=== PATIENT | male | born 1990 | race Two or more races ===

== ENCOUNTER 2022-03-12 12:32 | Outpatient (REF) | payer MEDICAID, SELFPAY ==
--- NOTE | ~2022-03-12 | XR_ITS ---
EXAMINATION: LEFT HIP, LUMBAR SPINE AND THORACIC SPINE CLINICAL INFORMATION: Left hip pain back pain COMPARISON: None TECHNIQUE: Left hip 2 views. Lumbar spine 5 views. Thoracic spine 3 views FINDINGS: Left hip: There is no visible acute fracture, dislocation or subluxation seen. No bony erosive changes. The soft tissues are normal Lumbar spine: There is normal lumbar lordosis. There is a rudimentary disc at the S1-S2 disc level with partially lumbarized S1 vertebra. The vertebral heights and alignment is normal. There is no pars defect or listhesis. No acute fracture, dislocation or subluxation seen. No lytic or sclerotic process seen the paravertebral soft tissues are normal. SI joints are normal. Dorsal spine: There is normal thoracic kyphosis. The vertebral heights, alignment and disc heights are normal. No visible acute fracture, dislocation or subluxation seen. No bony erosive changes XR/XR thoracic spine 3V IMPRESSION: Unremarkable left hip exam. Partially lumbarized S1 vertebra with rudimentary S1-S2 disc. No acute fracture or dislocation seen no pars defect or listhesis. Unremarkable dorsal spine exam
--- NOTE | ~2022-03-12 | XR_ITS ---
EXAMINATION: LEFT HIP, LUMBAR SPINE AND THORACIC SPINE CLINICAL INFORMATION: Left hip pain back pain COMPARISON: None TECHNIQUE: Left hip 2 views. Lumbar spine 5 views. Thoracic spine 3 views FINDINGS: Left hip: There is no visible acute fracture, dislocation or subluxation seen. No bony erosive changes. The soft tissues are normal Lumbar spine: There is normal lumbar lordosis. There is a rudimentary disc at the S1-S2 disc level with partially lumbarized S1 vertebra. The vertebral heights and alignment is normal. There is no pars defect or listhesis. No acute fracture, dislocation or subluxation seen. No lytic or sclerotic process seen the paravertebral soft tissues are normal. SI joints are normal. Dorsal spine: There is normal thoracic kyphosis. The vertebral heights, alignment and disc heights are normal. No visible acute fracture, dislocation or subluxation seen. No bony erosive changes XR/XR lumbar spine 4V min IMPRESSION: Unremarkable left hip exam. Partially lumbarized S1 vertebra with rudimentary S1-S2 disc. No acute fracture or dislocation seen no pars defect or listhesis. Unremarkable dorsal spine exam
--- NOTE | ~2022-03-12 | XR_ITS ---
EXAMINATION: LEFT HIP, LUMBAR SPINE AND THORACIC SPINE CLINICAL INFORMATION: Left hip pain back pain COMPARISON: None TECHNIQUE: Left hip 2 views. Lumbar spine 5 views. Thoracic spine 3 views FINDINGS: Left hip: There is no visible acute fracture, dislocation or subluxation seen. No bony erosive changes. The soft tissues are normal Lumbar spine: There is normal lumbar lordosis. There is a rudimentary disc at the S1-S2 disc level with partially lumbarized S1 vertebra. The vertebral heights and alignment is normal. There is no pars defect or listhesis. No acute fracture, dislocation or subluxation seen. No lytic or sclerotic process seen the paravertebral soft tissues are normal. SI joints are normal. Dorsal spine: There is normal thoracic kyphosis. The vertebral heights, alignment and disc heights are normal. No visible acute fracture, dislocation or subluxation seen. No bony erosive changes XR/XR hip LT min 2V IMPRESSION: Unremarkable left hip exam. Partially lumbarized S1 vertebra with rudimentary S1-S2 disc. No acute fracture or dislocation seen no pars defect or listhesis. Unremarkable dorsal spine exam
== END 2022-03-12 12:33 | disposition home or self-care (01) ==
LOC: HO.XRAY 12:32
PROVIDERS: PCP Internal Medicine; Visit Provider Internal Medicine
DX: M25.552 Pain in left hip (principal); M54.50 Low back pain, unspecified; M54.6 Pain in thoracic spine
CPT/HCPCS: 72072; 72110; 73502

== ENCOUNTER 2023-07-23 08:50 | Inpatient (IN) | payer MEDICAID, SELFPAY ==
--- NOTE | ~2023-07-23 | US_ITS ---
EXAMINATION: US ABDOMEN LIMITED CLINICAL INFORMATION: Right upper quadrant pain, nausea and vomiting. Question cholecystitis.. COMPARISON: CT abdomen pelvis 07/23/2023. TECHNIQUE: Real-time imaging of the right upper quadrant abdominal viscera. FINDINGS: GALLBLADDER: There is echogenic bile with wall thickness of 1.0 cm. There is fluid visualized in the gallbladder. No pericholecystic fluid collection seen. Findings are suspicious for acalculous cholecystitis. COMMON BILE DUCT: Normal in caliber measuring 0.4 cm in diameter. FREE FLUID: None. US/US abdomen limited IMPRESSION: Findings suspicious for acalculous cholecystitis.
--- NOTE | ~2023-07-23 | CT_ITS ---
EXAMINATION: CT ABDOMEN AND PELVIS WITH CONTRAST CLINICAL INFORMATION: Abdominal pain, nausea and vomiting COMPARISON: None available. TECHNIQUE: Multidetector volumetric images were obtained from the superior aspect of the liver through the pubic symphysis following administration 85 mL of Omnipaque 350 intravenous contrast. Sagittal and coronal reformatted images were obtained on the technologist's workstation. Oral contrast: Yes This CT examination was performed using dose optimization techniques as appropriate, variously including the following: *Automated exposure control *Adjustment of mA and/or kV according to patient size (this includes techniques or standardized protocols for targeted exams where dose is matched to indication/reason for exam; i.e. extremities or head) *Use of iterative reconstruction technique DLP: 1067 mGy-cm FINDINGS: LUNG BASES: The visualized lung bases are clear. There is a small esophageal hernia. LIVER, GALLBLADDER, AND BILIARY TREE: The liver is normal in size, shape, and attenuation. No focal hepatic lesion or biliary ductal dilatation is present. The gallbladder is normal in size. There is high attenuation densities in the gallbladder suggestive of small gallstones. The gallbladder wall appears slightly indistinct and may be thickened and edematous. Appearance is concerning for acute cholecystitis. There are prominent adjacent lymph nodes for example measuring 6 mm axial image 23 series 2. PANCREAS: Unremarkable. SPLEEN: Unremarkable. ADRENAL GLANDS: Unremarkable. KIDNEYS AND URETERS: The kidneys are normal in size, shape, and attenuation. No hydronephrosis, hydroureter, or calculi seen. No perinephric stranding. BLADDER: Unremarkable. GASTROINTESTINAL TRACT: The small and large bowel are unremarkable. The appendix is definitely seen. No inflammatory changes in the right lower quadrant. ABDOMINAL WALL: No significant hernia is appreciated. LYMPH NODES: Small small bowel mesentery lymph nodes. No ascites. VASCULAR: Unremarkable. PELVIC VISCERA: Unremarkable. OSSEOUS STRUCTURES: Unremarkable. CT/CT abdomen pelvis w IV con IMPRESSION: Abnormal appearing gallbladder with question gallstones and gallbladder wall thickening and edema. Appearance is concerning for acute cholecystitis. Follow-up ultrasound recommended. Small esophageal hernia. Fleischner guidelines were followed.
--- NOTE | 2023-07-23 09:26 | ED_ITS ---
HPI - URI/Sore Throat General Chief Complaint: Abdominal Pain Stated Complaint: sob, stoamch pain, fever Time Seen by Provider: 07/23/23 09:14 Source: patient Mode of arrival: ambulatory Limitations: no limitations History of Present Illness HPI Narrative: Patient is a 33-year-old male who presents emergency department for evaluation of multiple complaints. Reports onset of symptoms last night including diffuse upper abdominal pain reproducible to cough and deep breathing, nonproductive cough, feeling as though he cannot take a full breath, tactile fever. Reports an episode of dark colored emesis last night. He states that he has experienced symptoms like this in the past but typically after throwing up his pain goes away. He denies any known sick contacts. He reports last bowel movement to have been yesterday. Denies headache, neck pain, neck stiffness, chest pain, lower abdominal pain, dysuria, urinary frequency/ urgency / hesitancy, constipation, diarrhea, hematochezia, melena. Related Data Home Medications Medication Instructions Recorded Confirmed cholecalciferol (vitamin D3) 25 25 mcg PO QAM 07/23/23 07/23/23 mcg (1,000 unit) tablet lisinopril 10 1 tab PO DAILY 07/23/23 07/23/23 mg-hydrochlorothiazide 12.5 mg tablet omeprazole 20 mg capsule,delayed 20 mg PO QAM 07/23/23 07/23/23 release Allergies Allergy/AdvReac Type Severity Reaction Status Date / Time Penicillins [PENICILLINS] Allergy Unknown UNKNOWN Unverified 05/02/20 16:35 Review of Systems 2 Review of Systems: Yes all other systems are reviewed and are negative [facility] Past Medical History Attestation statement: The following information was validated with the patient. Source: old records reviewed Social History Social History Advance Directives: No Advance Directives Information Provided: No Physical Exam 2 Vital Signs: Vital Signs: Last Vital Signs Temp 98.1 F 07/23/23 09:36 Pulse 84 07/23/23 09:36 Resp 16 07/23/23 09:36 BP 148/95 H 07/23/23 09:36 Pulse Ox 96 07/23/23 09:36 O2 Del Method Room Air 07/23/23 09:36 BMI result Body Mass Index 50.1 Appearance: Alert.?Oriented to person, place and time. No acute distress.?Normal affect. Eyes: Pupils equal, round and reactive to light.? ENT: TM normal bilaterally. Pharynx normal.?? Neck: Normal inspection.? Neck supple.??No cervical adenopathy CVS: Heart sounds normal. Normal heart rate and rhythm.? Pulses normal.?? Respiratory: No respiratory distress.? Lung sounds clear to auscultation bilaterally?? Abdomen: Soft Diffuse upper abdominal tenderness upon palpation. No rigidity. No guarding. Negative Daugherty sign. No rebound tenderness. Normoactive bowel sounds. Skin: Skin warm and dry.? Normal skin color.? ? Extremities: No lower extremity edema.? Neuro: Moves all extremities spontaneously. Sensation intact bilaterally. No motor deficits. Ambulates with normal steady gait. Course Reevaluation(s) Reevaluation #1: CT abdomen and pelvis revealing acute cholecystitis question of gallstone, will obtain right upper quadrant ultrasound to assess for cholelithiasis and CBD. Covered with ceftriaxone and metronidazole given allergy to penicillin. Consulted with General surgery, Dr. Dietz, who Agrees to admit patient to surgical service. Patient and family updated on plan of care. Time: 14:05 Medications Administered Generic Name Dose Route Start Last Admin Trade Name Freq PRN Reason Stop Dose Admin Acetaminophen 975 mg 07/23/23 14:44 07/23/23 15:56 Acetaminophen 325 Mg Tablet PO 975 mg Q6H PRN Administration Pain, Mild (Pain Scale 1-3) Lactated Ringer's 1,000 mls @ 150 mls/hr 07/23/23 14:45 07/23/23 15:57 Lr IVCONT 150 mls/hr .Q6H40M CARLOS Administration Discontinued Medications Generic Name Dose Route Start Last Admin Trade Name Freq PRN Reason Stop Dose Admin Belladonna Alkaloids/Phenobarbital 10 ml 07/23/23 09:28 07/23/23 10:00 Phenobarb/Hyoscy/Atropine/Scop 10 Ml Elixir PO 07/23/23 09:29 10 ml ONCE ONE Administration Famotidine 20 mg 07/23/23 09:28 07/23/23 10:00 Famotidine 20 Mg Tablet PO 07/23/23 09:29 20 mg ONCE ONE Administration Sodium Chloride 1,000 mls @ 999 mls/hr 07/23/23 11:15 07/23/23 12:43 Ns IV 07/23/23 12:15 Infused .Q1H1M CARLOS Infusion Ceftriaxone Sodium 2 gm/ 50 mls @ 100 mls/hr 07/23/23 14:00 07/23/23 15:18 Sodium Chloride IV 07/23/23 14:29 Infused ONCE ONE Infusion Metronidazole 500 mg in 100 mls @ 100 mls/hr 07/23/23 14:00 07/23/23 14:52 Flagyl IV 07/23/23 14:59 100 mls/hr ONCE ONE Administration Iohexol 85 ml 07/23/23 12:03 07/23/23 12:04 Iohexol 350 Mg/Ml 100 Ml Infus..Btl IV 07/23/23 12:04 85 ml ONCE ONE Administration Ketorolac Tromethamine 30 mg 07/23/23 11:08 07/23/23 11:44 Ketorolac Tromethamine 30 Mg/Ml Vial IVPUSH 07/23/23 11:09 30 mg ONCE ONE Administration Ondansetron HCl 4 mg 07/23/23 11:07 07/23/23 11:42 Ondansetron Hcl 4 Mg/2 Ml Vial IVPUSH 07/23/23 11:08 4 mg ONCE ONE Administration Medical Decision Making Medical Decision Making MDM Narrative: Patient is a 33-year-old male with past medical history of hypertension, presenting for evaluation of cough, shortness of breath, and upper abdominal pain as per HPI. At this time history and physical exam not consistent with ACS/PE/pneumonia. Well-appearing, nontoxic, afebrile, no tachycardia or tachypnea/hypoxia. Speaking clear full sentences, ambulatory with steady gait. mild diffuse upper abdominal tenderness upon palpation, obtained CBC/CMP/lipase, which reveals leukocytosis with left shift no anemia, mildly elevated ALT with remainder of LFTs within normal limits, lipase within normal limits. Vomited approximately 50 mL dark green emesis, gastric occult testing negative. trialed GI cocktail for symptoms; and famotidine Without much improvement. viral testing is negative. Will obtain CT of the abdomen and pelvis for further evaluation, 1 L normal saline IV fluid, Toradol IV, Zofran IV. Differential Diagnosis Differential Diagnoses: The differential diagnosis associated with the presentation includes ( viral syndrome, gastritis, PUD, cholecystitis, cholelithiasis. Less likely obstruction, appendicitis, diverticulitis) Admission/Observation Consideration of admission/observation: Escalation of care including admission/observation considered ( see narrative above and course narrative for further detail) Consult Healthcare Provider Management of the patient was discussed with: Customer Care Associate ( General surgery Dr. Dietz, as per course narrative) Lab Data MDM Lab Attestation statement: I reviewed the patient's lab results. 07/23/23 10:11 07/23/23 10:11 Labs: Lab Results 07/23/23 07/23/23 07/23/23 Range/Units 09:21 10:11 10:56 WBC 15.5 H (4.8-10.8) X10*3/uL RBC 5.68 (4.60-5.80) X10*6/uL Hgb 16.1 (14.0-18.0) g/dl Hct 47.4 (42.0-52.0) % MCV 83.5 (80.0-98.0) fL MCH 28.3 (27.0-33.0) pg MCHC 34.0 (31.0-36.0) g/dl RDW 12.0 (11.0-16.0) % Plt Count 367 (160-400) X10*3/uL MPV 8.5 L (9.4-12.4) fL Immature Gran % (Auto) 0.5 H (0.0-0.4) % Neut % (Auto) 89.7 H (45-73) % Lymph % (Auto) 3.8 L (20-40) % [place] % (Auto) 5.4 (2-11) % Eos % (Auto) 0.3 (0-4) % Baso % (Auto) 0.3 (0-2) % Lymph # (Auto) 0.6 L (1.2-4.9) X10*3/uL [place] # (Auto) 0.8 (0.1-1.2) X10*3/uL Eos # (Auto) 0.1 (0.0-0.4) X10*3/uL Baso # (Auto) 0.1 (0.0-0.2) X10*3/uL Abs Immat Gran (auto) 0.07 H (0.00-0.03) X10*3/uL Absolute Neuts (auto) 13.9 H (2.0-8.3) x10*3/uL Absolute Nucleated RBC 0.000 (0.0-0.012) X10*3/uL Nucleated RBC % (auto) 0.0 (0.0-0.2) /100WBC Sodium 140 (135-145) mmol/L Potassium 3.6 (3.3-5.1) mmol/L Chloride 109 H (96-108) mmol/L Carbon Dioxide 20 L (22-29) mmol/L Anion Gap 15 (12-20) BUN 16 (9-16) mg/dL Creatinine 1.00 (0.5-1.4) mg/dL Estim Creat Clear Calc 143.2 Estimated GFR > 60 Random Glucose 128 H (60-115) mg/dL Calcium 9.9 (8.4-10.2) mg/dL Total Bilirubin 0.6 (0.0-1.0) mg/dL AST 29 (5-37) U/L ALT 71 H (0-40) U/L Alkaline Phosphatase 100 (39-117) U/L Total Protein 8.9 H (6.5-8.0) g/dL Albumin 4.7 (3.5-5.0) g/dL Lipase 19 (8-78) U/L Urine Color Urine Appearance Urine pH (5.0-9.0) Ur Specific [place] (1.005-1.025) Urine Protein (Neg-Trace) mg/dL Urine Glucose (UA) (Negative) mg/dL Urine Ketones (Negative) mg/dL Urine Blood (Negative) Urine Nitrite (Negative) Ur Leukocyte Esterase (Negative) Gastric Occult Blood NEGATIVE (NEG) Influenza Type A (PCR) NEGATIVE (Negative) Influenza Type B (PCR) NEGATIVE (Negative) RSV RNA Qual (PCR) NEGATIVE (Negative) SARS-CoV-2 RNA (RT-PCR) NEGATIVE (Negative) 07/23/23 Range/Units 14:07 WBC (4.8-10.8) X10*3/uL RBC (4.60-5.80) X10*6/uL Hgb (14.0-18.0) g/dl Hct (42.0-52.0) % MCV (80.0-98.0) fL MCH (27.0-33.0) pg MCHC (31.0-36.0) g/dl RDW (11.0-16.0) % Plt Count (160-400) X10*3/uL MPV (9.4-12.4) fL Immature Gran % (Auto) (0.0-0.4) % Neut % (Auto) (45-73) % Lymph % (Auto) (20-40) % [place] % (Auto) (2-11) % Eos % (Auto) (0-4) % Baso % (Auto) (0-2) % Lymph # (Auto) (1.2-4.9) X10*3/uL [place] # (Auto) (0.1-1.2) X10*3/uL Eos # (Auto) (0.0-0.4) X10*3/uL Baso # (Auto) (0.0-0.2) X10*3/uL Abs Immat Gran (auto) (0.00-0.03) X10*3/uL Absolute Neuts (auto) (2.0-8.3) x10*3/uL Absolute Nucleated RBC (0.0-0.012) X10*3/uL Nucleated RBC % (auto) (0.0-0.2) /100WBC Sodium (135-145) mmol/L Potassium (3.3-5.1) mmol/L Chloride (96-108) mmol/L Carbon Dioxide (22-29) mmol/L Anion Gap (12-20) BUN (9-16) mg/dL Creatinine (0.5-1.4) mg/dL Estim Creat Clear Calc Estimated GFR Random Glucose (60-115) mg/dL Calcium (8.4-10.2) mg/dL Total Bilirubin (0.0-1.0) mg/dL AST (5-37) U/L ALT (0-40) U/L Alkaline Phosphatase (39-117) U/L Total Protein (6.5-8.0) g/dL Albumin (3.5-5.0) g/dL Lipase (8-78) U/L Urine Color Yellow Urine Appearance Clear Urine pH 5.0 (5.0-9.0) Ur Specific [place] >= 1.030 H (1.005-1.025) Urine Protein Negative (Neg-Trace) mg/dL Urine Glucose (UA) Negative (Negative) mg/dL Urine Ketones 15 (Negative) mg/dL Urine Blood Negative (Negative) Urine Nitrite Negative (Negative) Ur Leukocyte Esterase Negative (Negative) Gastric Occult Blood (NEG) Influenza Type A (PCR) (Negative) Influenza Type B (PCR) (Negative) RSV RNA Qual (PCR) (Negative) SARS-CoV-2 RNA (RT-PCR) (Negative) Independent Interpretation I performed an independent interpretation of an: Ultrasound and CT Scan Radiology Impression Discussion of test interpretation with radiology: I have reviewed the radiologist's reading. Radiologist Impression: CT/CT abdomen pelvis w IV con IMPRESSION: Abnormal appearing gallbladder with question gallstones and gallbladder wall thickening and edema. Appearance is concerning for acute cholecystitis. Follow-up ultrasound recommended. Small esophageal hernia. US/US abdomen limited IMPRESSION: Findings suspicious for acalculous cholecystitis. Discharge Plan Discharge Clinical Impression: Acute cholecystitis Patient Disposition: Admitted As Inpatient
[2023-07-23 09:36] VITALS: BP 148/95; PULSE 84; RESP 16; TEMP 36.7; O2SAT 96; BMI 50.1
[2023-07-23] MEDS: Famotidine 20 MG TABLET PO (10:00)
[2023-07-23] MEDS: PHENobarb/Hyoscy/Atropine/Scop 10 ML ELIXIR PO (10:00)
[2023-07-23 10:03] LABS: Influenza A PCR NEGATIVE (Negative); Influenza B PCR NEGATIVE (Negative); Resp Syncy Virus RNA Qual PCR NEGATIVE (Negative); SARS COV2 PCR INHOUSE NEGATIVE (Negative)
[2023-07-23 10:18] LABS: MANUAL DIFF FLAG NO
[2023-07-23 10:19] LABS: Basophils Absolute Auto 0.1 X10*3/uL (0.0-0.2); Basophils Percent Auto 0.3 % (0-2); Eosinophils Absolute Auto 0.1 X10*3/uL (0.0-0.4); Eosinophils Percent Auto 0.3 % (0-4); Hematocrit 47.4 % (42.0-52.0); Hemoglobin 16.1 g/dl (14.0-18.0); Imm Gran Abs Auto 0.07 X10*3/uL (0.00-0.03); Imm Gran Pct Auto 0.5 % (0.0-0.4); Lymphocytes Absolute Auto 0.6 X10*3/uL (1.2-4.9); Lymphocytes Percent Auto 3.8 % (20-40); Mean Corpuscular Hemoglobin 28.3 pg (27.0-33.0); Mean Corpuscular Volume 83.5 fL (80.0-98.0); Mean Platelet Volume 8.5 fL (9.4-12.4); Monocytes Absolute Auto 0.8 X10*3/uL (0.1-1.2); Monocytes Percent Auto 5.4 % (2-11); Neutrophils Absolute Auto 13.9 x10*3/uL (2.0-8.3); Neutrophils Percent Auto 89.7 % (45-73); Platelet Count 367 X10*3/uL (160-400); Red Blood Count 5.68 X10*6/uL (4.60-5.80); White Blood Count 15.5 X10*3/uL (4.8-10.8)
[2023-07-23 10:41] LABS: Alanine Aminotransferase 71 U/L (0-40); Albumin Level 4.7 g/dL (3.5-5.0); Alkaline Phosphatase 100 U/L (39-117); Anion Gap 15 (12-20); Aspartate Amino Transferase 29 U/L (5-37); Bilirubin Total 0.6 mg/dL (0.0-1.0); Blood Urea Nitrogen 16 mg/dL (9-16); Calcium 9.9 mg/dL (8.4-10.2); Carbon Dioxide 20 mmol/L (22-29); Chloride 109 mmol/L (96-108); Creatinine Clr Calc Pharmacy 143.2; Estimated Glomerular Filt Rate > 60; Glucose Random 128 mg/dL (60-115); Lipase 19 U/L (8-78); Potassium 3.6 mmol/L (3.3-5.1); Sodium 140 mmol/L (135-145); Total Protein 8.9 g/dL (6.5-8.0)
[2023-07-23 11:05] LABS: GASOB Int Neg Ctl Valid YES; GASOB Int Pos Ctl Valid YES; Occult Blood Gastric NEGATIVE (NEG)
[2023-07-23] MEDS: ondansetron HCL 4 MG/2 ML VIAL IVPUSH ×2 (11:42→21:08)
[2023-07-23] MEDS: Ketorolac Tromethamine 30 MG/ML VIAL IVPUSH (11:44)
[2023-07-23] MEDS: 0.9 % Sodium Chloride 1,000 ML 999 ML IV (11:47)
[2023-07-23] MEDS: iohexoL 350 MG/ML 100 ML INFUS..BTL 85 ML IV (12:04)
--- NOTE | 2023-07-23 14:09 | PM.HPGS ---
History of Present Illness History of Present Illness Date of Service: 07/23/23 Chief complaint: Acute calculus cholecystitis Narrative: Kristofer Lugo is a 33 year old male with a history of morbid obesity with a BMI of 50.1/weight of 310 lb, history of hypertension, vitamin-D deficiency and an unknown other health problem treated with an unknown medication according to the patient who has had 2 episodes of abdominal pain associated with vomiting. Patient notes that this episode started yesterday that was accompanied by both nausea and vomiting. He is continuing to have pain and notes that previously, after several hours of pain and vomiting, the pain would resolve. Patient denies any intra-abdominal operations and is a poor historian regarding his past medical history. He reports an allergy to penicillin Last meal was yesterday, 07/22 in the afternoon. Review of Systems Review of Systems: Yes all other systems are reviewed and are negative Constitutional: Constitutional: Reports as per [facility] Social History Social History (Reviewed 07/23/23 @ 14:26 by Jose J Dietz MD, [facility], [facility]) Advance Directives: No Advance Directives Information Provided: No Meds Allergies Allergy/AdvReac Type Severity Reaction Status Date / Time Penicillins [PENICILLINS] Allergy Unknown UNKNOWN Unverified 05/02/20 16:35 Active Medications: Current Medications Ceftriaxone Sodium 2 gm/ (Sodium Chloride) 50 mls @ 100 mls/hr IV ONCE ONE Stop: 07/23/23 14:29 Metronidazole (Flagyl) 500 mg in 100 mls @ 100 mls/hr IV ONCE ONE Stop: 07/23/23 14:59 Home Medications Medication Instructions Recorded Confirmed Last Taken Type cholecalciferol (vitamin D3) 25 25 mcg PO QAM 07/23/23 07/23/23 07/22/23 History mcg (1,000 unit) tablet lisinopril 10 1 tab PO DAILY 07/23/23 07/23/23 07/22/23 History mg-hydrochlorothiazide 12.5 mg tablet omeprazole 20 mg capsule,delayed 20 mg PO QAM 07/23/23 07/23/23 07/22/23 History release Physical Exam Vital Signs: Vital Signs: Last Vital Signs Temp 98.1 F 07/23/23 09:36 Pulse 84 07/23/23 09:36 Resp 16 07/23/23 09:36 BP 148/95 H 07/23/23 09:36 Pulse Ox 96 07/23/23 09:36 O2 Del Method Room Air 07/23/23 09:36 BMI result Body Mass Index 50.1 On exam, he is nontoxic and seems to be in good spirits His sclera anicteric Oropharynx clear, Mallampati class 4, dentition poor Heart is regular, normal S1-S2, lungs are equal but diminished bilaterally Abdomen is morbidly obese with epigastric and right upper quadrant pain to palpation. No rebound, rigidity, guarding is noted and no peritoneal sign is present Results Results Labs: Short CBC 07/23/23 Range/Units 10:11 WBC 15.5 H (4.8-10.8) X10*3/uL Hgb 16.1 (14.0-18.0) g/dl Hct 47.4 (42.0-52.0) % Plt Count 367 (160-400) X10*3/uL BMP 07/23/23 10:11 Sodium 140 Potassium 3.6 Chloride 109 H Carbon Dioxide 20 L BUN 16 Creatinine 1.00 Calcium 9.9 Liver Function 07/23/23 Range/Units 10:11 Total Bilirubin 0.6 (0.0-1.0) mg/dL AST 29 (5-37) U/L ALT 71 H (0-40) U/L Alkaline Phosphatase 100 (39-117) U/L Albumin 4.7 (3.5-5.0) g/dL Abdomen CT scan report/results: report reviewed and image reviewed CT scan - pelvis: report reviewed and image reviewed Abdominal ultrasound report/results: pending Assessment and Plan (1) Acute cholecystitis: Status: Acute (2) HTN (hypertension): Status: Acute (3) BMI 50.0-59.9, adult: Status: Acute (4) Vitamin D deficiency: Status: Acute Plan Bedside ultrasound is being performed to assess the common bile duct. I briefly explained to the patient that he appears to have either biliary colic or early calculous cholecystitis and the additional information regarding his anatomy will be required to help direct his care. I briefly reviewed the probable need for cholecystectomy this admission. The patient expressed interest in being discharged with outpatient follow-up, but the inherent risks of significant impact to his health including worsening symptoms and possible need for open surgery was discussed and apparently understood and he is in agreement to stay, as of my discussion. Patient had some questions regarding the procedure but understands we will discuss in greater detail after we obtain the U/S and monitor his symptoms. Admit, NPO, IVF Analgesics & antiemetics Trend labs Please note that the patient is bilingual but cannot read. The patient's uncle is Swedish-speaking only and the patient requested interpretive services to facilitate his uncle's input into the recurring right upper quadrant pain. Via interpretive services, I explained the symptoms of biliary colic vs early acute calculus cholecystitis and recommended laparoscopic cholecystectomy, possibly open, possible cholangiogram. I reviewed the option of continued observation and 2nd opinion which was declined. I also reviewed the inherent risks to surgery which include, but are not limited to: Bleeding that could require another operation or blood transfusion, the need for open surgery, the unlikely but possible issue of bile leak that could require an ERCP, the risk of retained common duct stones that could require an ERCP, the risk of common bile duct injury which would require transfer to a larger institution for another operation. Risks of incisional hernia, activity restrictions, risk of DVT that could be fatal were all discussed and apparently understood. Patient seemed to understand his options, declined a 2nd opinion and wants to proceed as recommended. We also discussed the patient's obesity and its relationship to fatty liver disease enlarged liver & HTN. The patient gets his healthcare at [facility] and requested I forward a copy of these records to his PCP for completeness. We also reviewed the increased risk of cirrhosis. Instructions regarding diet and activity reviewed and apparently understood. The patient is advised to avoid rich fatty foods postoperatively to avoid GI distress/diarrhea and advised to not lift more than 20 lb for medical reasons to minimize the risk of hernia postoperatively. I recommended that she discuss these restrictions with her employer and that she is not disabled during this time frame but can perform light duty. The patient's questions seemed to be satisfactorily answered. Quality Stroke Does the patient have a stroke diagnosis?: No VTE Prior VTE?: No VTE Risk Level:: Surgical - moderate VTE Device Contraindication: N/A - Device Ordered VTE Drug Contraindication: Treatment Not Indicated Procedures Date of Service Date of Service: 07/23/23
[2023-07-23 14:15] LABS: Appearance Urine Clear; Color Urine Yellow; Glucose Urine UA Negative (Negative); Leukocyte Esterase Urine Negative (Negative); Nitrite Urine Negative (Negative); Specific Gravity - Urine >= 1.030 (1.005-1.025); Urine Blood Negative (Negative); Urine Ketones 15 mg/dL (Negative); Urine Protein Negative (Neg-Trace)
[2023-07-23] MEDS: cefTRIAXone sodium 2 GM in 0.9 % Sodium Chloride 50 ML IV (14:19)
[2023-07-23] MEDS: metroNIDAZOLE/NS 500 MG/100 ML PIGGYBACK 100 MG IV (14:52)
--- NOTE | 2023-07-23 14:52 | PHA.MEDREC ---
Pharmacy Consult ? Medication Reconciliation Pharmacy has completed the medication reconciliation. Patient report medications by what they are for. Per pharmacy claim history patient has not filled medications since 02/09/23. Stiven DewittD
--- NOTE | 2023-07-23 15:15 | PC.NURSE ---
20g IV placed in left bicep- pt rec 2gm ceftriaxone, currently rec flagyl 500mg IV per order- Dr Dietz at bedside with prick stitcher, discussing plans for admission
--- NOTE | 2023-07-23 15:28 | W.PM.OPN ---
Operative Note Operative Note Date of Service: 07/24/23 Narrative: Preop diagnosis: [Early acute calculus cholecystitis] Postop diagnosis: [Same, enlarged fatty liver, right upper quadrant adhesions requiring adhesiolysis] Procedure: [] Surgeon: Jose J Dietz MD, FACS, [facility] Assist: [Hardik Carranza PA-C] Anesthesia: [GET] Estimated blood loss: [300cc] Specimen: [1) gallbladder fluid for Gram stain and culture; 2) gallbladder and contents] Drain: DANY in Morison's pouch Intraoperative findings: [Necrotic/gangrenous cholecystitis with stones, enlarged fatty liver, edema to the karen and cystic triangle; cystic duct 4-5 mm; cystic artery 2-3 mm and apparently thrombosed. Critical view demonstrated.] Indications: [The patient is a 33-year-old morbidly obese male with a history of hypertension who has had recurring episodes of right upper quadrant pain and was recently diagnosed with gallstones. CT showed inflammation around the gallbladder and stones; abdominal ultrasound showed a 4 mm CBD, thickened gallbladder wall and no evidence of stones raising a concern for acalculous cholecystitis; LFTs showed a normal total bilirubin and alkaline phosphatase but elevated ALT. The patient requested his [place]-speaking uncle be included in the discussion and the options including continued observation, attempted discharge for outpatient follow-up or 2nd opinion were reviewed. Given his exam and findings, I recommended proceeding with a laparoscopic cholecystectomy, possibly open and possible cholangiogram in reviewed the inherent risks in [place]i with [place] interpretation for his uncle, as requested. The patient noted he cannot read either [place]i or [place], so I reviewed the risks and read consent risks to him, which include, but are not limited to: Bleeding that could require another operation or blood transfusion, the need for open surgery, the unlikely but possible issue of bile leak that could require an ERCP, the risk of retained common duct stones that could require an ERCP, risks of ongoing pain related to NAFLD, risk of fatal DVT/PE, risk of incisional hernia, the risk of common bile duct injury which would require transfer to a larger institution for another operation. Patient seemed to understand his options, declined a 2nd opinion and wants to proceed with cholecystectomy as recommended.] Procedure: [The patient was identified in preoperative holding and again in the operating room and placed supine on the table. An appropriate time-out was performed and preemptive local used at all trocar insertion sites. I began at the patient's supraumbilical midline and placed a Veress needle through a transverse supraumbilical incision. An appropriate drop test was performed but opening pressure were high, so the needle was left in place and a stab incision made in the left upper quadrant, the Veress needle placed, an appropriate drop test performed and a pneumoperitoneum of 15 mmHg obtained using carbon dioxide. Opening pressures in left upper quadrant were 9 mmHg. Next, I entered the abdomen using a 5 mm 30 degree laparoscopic through the right anterior axillary line 5 mm Optiview port using preemptive analgesia at the level of the umbilicus. Upon entering the abdomen, both Veress needles were noted to be intra-abdominal and no injury was noted. Both needles were withdrawn. Next a a 5 mm epigastric and two 5 mm right subcostal ports were placed with preemptive analgesia under direct laparoscopic vision without incident and the supraumbilical trocar upsized to a 12 mm trocar under direct laparoscopic vision. The patient had obvious gangrenous changes to his gallbladder. The gallbladder was tense requiring assist aspirate her to remove bile and stones which was sent for Gram stain and culture. In spite of careful retraction, the whole from the aspiration continue to enlarge and some stone and sludge from the gallbladder were were released, quickly contained. In addition, adhesions from the omentum were noted and so dense that a LigaSure or was required to lyse these adhesions under direct laparoscopic vision order to facilitate retraction of the gallbladder. An additional 5 mm port was required in the right upper quadrant due to the patient's centripetal obesity to facilitate safe dissection. The cystic triangle and karen were all rather edematous and dissection was carried from the neck of the gallbladder down towards the cystic duct which was circumferentially dissected the cystic artery was noted in its usual location medially and small is appeared thrombosed. After dissection was carried posteriorly and the critical view of safety demonstrated, these structures were clipped twice proximally, once distally and then sharply divided. The patient's body habitus, liver, edema and technical equipment difficulty is made removing the gallbladder from the fossa on the liver challenging due to the edema and smoke production. There was diffuse ooze from the liver bed that was rendered hemostatic with Surgicel and direct pressure. Once the gallbladder was removed, it was placed in an Endo-Catch bag and delivered through the umbilicus under direct laparoscopic vision. Prior to removing the gallbladder from the fossa, the clips were visualized on the cystic duct and artery stumps and additional Surgicel placed to control bleeding from the fossa. The abdomen was again inspected with the laparoscoped and a abdomen deflated to assess for hemostasis. Position changes were used to remove the irrigant and clot demonstrated from the operation and final evaluation of the liver bed showed inherent clot. A DANY was placed in Morison's pouch and secured to the skin via the lateral/inferior 5 mm port of the abdomen using 2 0 silk. The patient was returned to neutral position, the abdomen deflated and the fascia of the supraumbilical incision closed with interrupted Vicryl sutures. Skin was closed with 4-0 Monocryl subcuticular sutures. Mastisol and Steri-Strips were applied followed by Band-Aids. The patient tolerated the procedure well and was extubated recovered in stable condition. All sponge instrument counts were correct.
--- NOTE | 2023-07-23 15:53 | PM.DS ---
DS: Providers Provider Date of Service: 07/27/23 Date of admission: 07/23/23 14:45 Primary care physician: Graciela Recio MD Consults: 07/23/23 14:09 Consult to General Surgery Stat Consulting Provider: [facility] [place] [facility] Surgeons Reason for consultation: cholecystitis DS: Diagnosis Discharge Diagnosis (1) Acute cholecystitis: Status: Acute (2) HTN (hypertension): Status: Acute (3) BMI 50.0-59.9, adult: Status: Acute (4) Vitamin D deficiency: Status: Acute DS: Summary Hospital Course Hospital Course: See admitting H and P for full details. Briefly, this 33-year-old male with obesity, fatty liver disease, hypertension, vitamin-D deficiency presented with recurring episodes of abdominal pain associated with vomiting. He was noted to have a leukocytosis, guille cholecystic inflammation and stones on CT and ultrasound demonstrated a thickened gallbladder wall but a 4 mm common bile duct. He was admitted to the hospital for bowel rest, IV hydration and antibiotics. His exam and labs were monitored. The patient was taken for laparoscopic cholecystectomy and noted to have right upper quadrant adhesions requiring lysis of adhesions prior to remove his frankly gangrenous gallbladder. Due to his anatomy, engorged liver due to fatty liver disease and hepatomegaly, patient was kept in the hospital on antibiotics and Gram stain demonstrated both Gram-positive rods and Gram-negative rods, but intraoperative cultures were negative. He was monitored, his labs normalized, his drain removed since there was only serosanguineous drainage and he was discharged in improved condition. Time Attestation Discharge coordination time: Greater than 30 minutes Quality: Safe Use of Opioids Does Pt have an Active Cancer Diagnosis on the Problem List?: No Quality: Stroke Does the patient have a stroke diagnosis?: No Physical Exam Vital Signs: Vital Signs: Last Vital Signs Temp 98.1 F 07/23/23 09:36 Pulse 84 07/23/23 09:36 Resp 16 07/23/23 09:36 BP 148/95 H 07/23/23 09:36 Pulse Ox 96 07/23/23 09:36 O2 Del Method Room Air 07/23/23 09:36 BMI result Body Mass Index 50.1 DS: Data Data Completed and Pending Labs on day of discharge: Laboratory Results - last 24 hr 07/23/23 07/23/23 07/23/23 09:21 10:11 10:56 WBC 15.5 H RBC 5.68 Hgb 16.1 Hct 47.4 MCV 83.5 MCH 28.3 MCHC 34.0 RDW 12.0 Plt Count 367 MPV 8.5 L Immature Gran % (Auto) 0.5 H Neut % (Auto) 89.7 H Lymph % (Auto) 3.8 L [place] % (Auto) 5.4 Eos % (Auto) 0.3 Baso % (Auto) 0.3 Lymph # (Auto) 0.6 L [place] # (Auto) 0.8 Eos # (Auto) 0.1 Baso # (Auto) 0.1 Abs Immat Gran (auto) 0.07 H Absolute Neuts (auto) 13.9 H Absolute Nucleated RBC 0.000 Nucleated RBC % (auto) 0.0 Sodium 140 Potassium 3.6 Chloride 109 H Carbon Dioxide 20 L Anion Gap 15 BUN 16 Creatinine 1.00 Estim Creat Clear Calc 143.2 Estimated GFR > 60 Random Glucose 128 H Calcium 9.9 Total Bilirubin 0.6 AST 29 ALT 71 H Alkaline Phosphatase 100 Total Protein 8.9 H Albumin 4.7 Lipase 19 Urine Color Urine Appearance Urine pH Ur Specific [place] Urine Protein Urine Glucose (UA) Urine Ketones Urine Blood Urine Nitrite Ur Leukocyte Esterase Gastric Occult Blood NEGATIVE Influenza Type A (PCR) NEGATIVE Influenza Type B (PCR) NEGATIVE RSV RNA Qual (PCR) NEGATIVE SARS-CoV-2 RNA (RT-PCR) NEGATIVE 07/23/23 14:07 WBC RBC Hgb Hct MCV MCH MCHC RDW Plt Count MPV Immature Gran % (Auto) Neut % (Auto) Lymph % (Auto) [place] % (Auto) Eos % (Auto) Baso % (Auto) Lymph # (Auto) [place] # (Auto) Eos # (Auto) Baso # (Auto) Abs Immat Gran (auto) Absolute Neuts (auto) Absolute Nucleated RBC Nucleated RBC % (auto) Sodium Potassium Chloride Carbon Dioxide Anion Gap BUN Creatinine Estim Creat Clear Calc Estimated GFR Random Glucose Calcium Total Bilirubin AST ALT Alkaline Phosphatase Total Protein Albumin Lipase Urine Color Yellow Urine Appearance Clear Urine pH 5.0 Ur Specific [place] >= 1.030 H Urine Protein Negative Urine Glucose (UA) Negative Urine Ketones 15 Urine Blood Negative Urine Nitrite Negative Ur Leukocyte Esterase Negative Gastric Occult Blood Influenza Type A (PCR) Influenza Type B (PCR) RSV RNA Qual (PCR) SARS-CoV-2 RNA (RT-PCR) Discharge Plan Discharge Anticipated Discharge Date/Time: 07/27/23 16:00 Patient Disposition: Home, Self-Care Discharge Diagnosis: s/p lap marla for gangrenous cholecystitis Referrals: Graciela Recio MD [Primary Care Provider] - 1 Week Jose J Dietz MD, [facility], [facility] [Physician] - 1 Week Discharge Medications: New amoxicillin-pot clavulanate 875-125 mg Tablet 875 mg PO Q12H 7 Days Qty: 13 0RF oxycodone 5 mg tablet 5 mg PO Q4H PRN (Reason: pain) Qty: 30 0RF Rx Instructions: Partial Fill upon patient request. docusate sodium 100 mg capsule 100 mg PO BID Qty: 90 0RF Continued omeprazole 20 mg capsule,delayed release(DR/EC) 20 mg PO QAM lisinopril-hydrochlorothiazide 10-12.5 mg tablet 1 tab PO DAILY cholecalciferol (vitamin D3) 25 mcg (1,000 unit) tablet 25 mcg PO QAM Discharge Orders: Discharge Order (Routine); Ordered 07/27/23 Ordered By: Jose J Dietz Diet: low fat diet Activity on Discharge: No heavy lifting Stand Alone Forms: Patient Portal Discharge page Activity Restrictions/Additional Instructions: You had a laparoscopic cholecystectomy performed by Dr. Dietz. It is normal to experience some neck or shoulder pain from the gas used to inflate your abdomen. It is also normal to have pain or discomfort in your abdomen/belly as well as at the trocar sites (small incisions). This discomfort will resolve over the next 1-3 days, however, if it gets progressively worse, if you should develop worsening pain, nausea, vomiting and cannot keep liquids down, chest pain, difficulty breathing or shortness of breath, fevers over 100F please report to the nearest emergency department. Be sure to call the office at [phone] for a follow-up visit with 1 of the surgeons next week. Call the office with any questions or problems. Unless otherwise directed by Dr. Dietz, you should resume taking your regular medications. Be sure to take the antibiotic twice a day until they are gone. You do not need to use narcotics unless you are having pain. Be sure to drink 6 oz of orange juice every day. As Dr. Dietz reviewed in the office, you must not lift more than 20 lb for the next 4 weeks. Strenuous activities can tear out your sutures and cause an incisional hernia that would require another operation. Activities to be avoided include: sports, running, bicycling, yoga, lifting more than 20 lb, digging, gardening, splitting/carrying wood, swimming, hiking uphill, and other activities. If you have questions regarding this specific activity, please check with Dr. Dietz. If your incisions become red, swollen, tender or draining pus, please contact Dr. Dietz or go to the nearest emergency department. OK to shower, do not soak in a tub. If there are bandages on your incisions, remove them at home. Do not soak in a tub or swimming pool until your incisions have completely sealed, usually 2 or more weeks. After the dressings are removed in 48 hours, you will notice paper tapes called butterflies/Steri-Strips. These tapes will fall off on their own in 1-2 weeks. You do not need to apply another bandage unless your clothing irritates your incisions. If you need to place another Band-Aid on your incisions, be sure to wait until the Steri strip is dry. You have been prescribed narcotic pain medicine that will cause constipation. Please purchase [id number] stool softener known as Colace/docusate, 100 mg. Take 2 tablets with breakfast and the morning and 2 tablets in the evening after dinner until your bowels are moving and urine or longer taking narcotics. Please note that if you are not taking narcotics, the general anesthesia for the procedure can still cause constipation. If you experience diarrhea, stop taking the stool softener medicine. You can take [id number] Tylenol/acetaminophen 2 tablets every 6 hours. You should also use ice packs to the operative site to help minimize pain and swelling for the first 3 days, or as needed afterwards. Avoid aspirin, Aleve, ibuprofen, Motrin, Naprosyn, naproxen for the next week. Remember that the gallbladder helps to to digest fatty foods. If you eat fried foods; rich, creamy sauces; cheese; gravies or other such heavy, greasy foods, you will likely develop gas and bloating and diarrhea. To minimize this risk, eat a high protein, high-fiber, low-fat diet for the next few weeks. Care Plan Goals: Allow adequate healing Health Concerns: Status post cholecystectomy, allow adequate healing Plan of Treatment: Continue antibiotics as prescribed, allow adequate healing Assessment: Gangrenous cholecystitis, s/p lap marla
[2023-07-23] MEDS: Acetaminophen 325 MG TABLET 975 MG PO (15:56)
[2023-07-23] MEDS: Lactated Ringers 1,000 ML 150 ML IVCONT ×2 (15:57→22:19)
[2023-07-23 16:10] VITALS: TEMP 36.9
[2023-07-23 16:52] LABS: Estimated Average Glucose 97 mg/dL
[2023-07-23 16:58] VITALS: BP 112/60; PULSE 86; RESP 15; TEMP 37.6; O2SAT 99
[2023-07-23 17:31] VITALS: BMI 52.0
[2023-07-23 17:43] VITALS: BP 134/93; PULSE 93; RESP 18; TEMP 37.3; O2SAT 98
[2023-07-23 19:56] VITALS: BP 138/91; PULSE 103; RESP 18; TEMP 37.2; O2SAT 98
[2023-07-23] MEDS: HYDROmorphone HCl 0.5 MG/0.5 ML SYRINGE 0.25 MG IVPUSH ×2 (21:08→23:45)
[2023-07-24] VITALS (14 sets, daily range): BP systolic 105–123; BP diastolic 57–77; PULSE 75–109; RESP 16–22; TEMP 36.1–37.1; O2SAT 92–98
[2023-07-24] MEDS: HYDROmorphone HCl 0.5 MG/0.5 ML SYRINGE 0.25 MG IVPUSH ×4 (01:47→23:05)
[2023-07-24] MEDS: Lactated Ringers 1,000 ML 150 ML IVCONT ×3 (04:28→17:58)
[2023-07-24] MEDS: ondansetron HCL 4 MG/2 ML VIAL IVPUSH ×3 (04:38→19:42)
[2023-07-24] MEDS: Pantoprazole Sodium 40 MG/10 ML VIAL IVPUSH (05:44)
[2023-07-24 06:04] LABS: Basophils Absolute Auto 0.1 X10*3/uL (0.0-0.2); Basophils Percent Auto 0.3 % (0-2); Eosinophils Percent Auto 0.2 % (0-4); Hematocrit 39.8 % (42.0-52.0); Hemoglobin 13.4 g/dl (14.0-18.0); Imm Gran Abs Auto 0.13 X10*3/uL (0.00-0.03); Imm Gran Pct Auto 0.7 % (0.0-0.4); Lymphocytes Absolute Auto 1.3 X10*3/uL (1.2-4.9); Lymphocytes Percent Auto 6.9 % (20-40); MANUAL DIFF FLAG SCAN; Mean Corpuscular HGB Conc 33.7 g/dl (31.0-36.0); Mean Corpuscular Hemoglobin 28.7 pg (27.0-33.0); Mean Corpuscular Volume 85.2 fL (80.0-98.0); Mean Platelet Volume 9.8 fL (9.4-12.4); Monocytes Absolute Auto 2.3 X10*3/uL (0.1-1.2); Monocytes Percent Auto 12.1 % (2-11); Neutrophils Absolute Auto 15.4 x10*3/uL (2.0-8.3); Neutrophils Percent Auto 79.8 % (45-73); Platelet Count 234 X10*3/uL (160-400); Red Blood Count 4.67 X10*6/uL (4.60-5.80); Red Cell Distribution Width 12.3 % (11.0-16.0); SCAN SMEAR FLAG 1; White Blood Count 19.3 X10*3/uL (4.8-10.8)
[2023-07-24 06:21] LABS: Alanine Aminotransferase 98 U/L (0-40); Albumin Level 3.1 g/dL (3.5-5.0); Alkaline Phosphatase 89 U/L (39-117); Anion Gap 12 (12-20); Aspartate Amino Transferase 81 U/L (5-37); Bilirubin Total 3.3 mg/dL (0.0-1.0); Blood Urea Nitrogen 11 mg/dL (9-16); Calcium 8.4 mg/dL (8.4-10.2); Carbon Dioxide 22 mmol/L (22-29); Chloride 107 mmol/L (96-108); Creatinine Clr Calc Pharmacy 174.3; Estimated Glomerular Filt Rate > 60; Glucose Random 89 mg/dL (60-115); Potassium 3.5 mmol/L (3.3-5.1); Sodium 137 mmol/L (135-145); Total Protein 6.3 g/dL (6.5-8.0)
--- NOTE | 2023-07-24 06:27 | P.PNGS_ITS ---
Subjective Subjective Date of Service: 07/24/23 Patient reports: no new complaints and still having pain Interval history: Patient was seen preoperatively at approximately 06:40. He notes that he is about the same having the same level of pain no chest pain, difficulty breathing or shortness of breath. He denies any new complaints but asked if it was likely that he would go home today. I reviewed his elevated LFTs today and recommended that we plan to keep him overnight irrespective of surgical outcome today so that we can monitor his labs. He stated that he would call his Maltese-speaking on-call to update him. Physical Exam 2 Vital Signs: Vital Signs: Last Vital Signs Temp 96.9 F 07/24/23 04:00 Pulse 109 H 07/24/23 04:00 Resp 16 07/24/23 04:00 BP 107/59 L 07/24/23 04:00 Pulse Ox 93 07/24/23 04:00 O2 Del Method Room Air 07/24/23 04:00 BMI result Body Mass Index 52.0 On exam, he is anicteric and nontoxic He is having no respiratory difficulty Abdomen remains obese and is tender at the same level as yesterday. No diffuse peritoneal sign is noted. Objective Data Active Medications Acetaminophen (Acetaminophen 325 Mg Tablet) 975 mg PO Q6H PRN PRN Reason: Pain, Mild (Pain Scale 1-3) Last Admin: 07/23/23 15:56 Dose: 975 mg Documented By: BROCK Hydromorphone HCl (Hydromorphone Hcl 0.5 Mg/0.5 Ml Syringe) 0.25 mg IVPUSH Q2H PRN; Protocol PRN Reason: Pain, Moderate(Pain Scale 4-6) Last Admin: 07/24/23 04:33 Dose: 0.25 mg Documented By: CARLYLE Lactated Ringer's (Lr) 1,000 mls @ 150 mls/hr IVCONT .Q6H40M CARLOS Last Admin: 07/24/23 04:28 Dose: 150 mls/hr Documented By: CARLYLE Ondansetron HCl (Ondansetron Hcl 4 Mg/2 Ml Vial) 4 mg IVPUSH Q6H PRN PRN Reason: Nausea and Vomiting Last Admin: 07/24/23 04:38 Dose: 4 mg Documented By: HO.ODRISM Pantoprazole Sodium (Pantoprazole Sodium 40 Mg/10 Ml Vial) 40 mg IVPUSH DAILY@0630 [facility] Last Admin: 07/24/23 05:44 Dose: 40 mg Documented By: CARLYLE Labs 07/24/23 05:32 07/24/23 05:32 Labs: Laboratory Results - last 24 hr 07/23/23 07/23/23 07/23/23 09:21 10:11 10:56 MCV 83.5 MCH 28.3 MCHC 34.0 RDW 12.0 Plt Count 367 MPV 8.5 L Immature Gran % (Auto) 0.5 H Neut % (Auto) 89.7 H Lymph % (Auto) 3.8 L [place] % (Auto) 5.4 Eos % (Auto) 0.3 Baso % (Auto) 0.3 Lymph # (Auto) 0.6 L [place] # (Auto) 0.8 Eos # (Auto) 0.1 Baso # (Auto) 0.1 Abs Immat Gran (auto) 0.07 H Absolute Neuts (auto) 13.9 H Absolute Nucleated RBC 0.000 Nucleated RBC % (auto) 0.0 Anion Gap 15 Estim Creat Clear Calc 143.2 Estimated GFR > 60 Random Glucose 128 H Estimat Average Glucose Hemoglobin A1c % Calcium 9.9 Total Bilirubin 0.6 AST 29 ALT 71 H Alkaline Phosphatase 100 Total Protein 8.9 H Albumin 4.7 Lipase 19 Urine Color Urine Appearance Urine pH Ur Specific [place] Urine Protein Urine Glucose (UA) Urine Ketones Urine Blood Urine Nitrite Ur Leukocyte Esterase Gastric Occult Blood NEGATIVE Influenza Type A (PCR) NEGATIVE Influenza Type B (PCR) NEGATIVE RSV RNA Qual (PCR) NEGATIVE SARS-CoV-2 RNA (RT-PCR) NEGATIVE 07/23/23 07/23/23 07/24/23 14:07 16:18 05:32 MCV MCH MCHC RDW Plt Count MPV Immature Gran % (Auto) Neut % (Auto) Lymph % (Auto) [place] % (Auto) Eos % (Auto) Baso % (Auto) Lymph # (Auto) [place] # (Auto) Eos # (Auto) Baso # (Auto) Abs Immat Gran (auto) Absolute Neuts (auto) Absolute Nucleated RBC Nucleated RBC % (auto) Anion Gap 12 Estim Creat Clear Calc 174.3 Estimated GFR > 60 Random Glucose 89 Estimat Average Glucose 97 Hemoglobin A1c % 5.0 Calcium 8.4 D Total Bilirubin 3.3 H AST 81 H ALT 98 H Alkaline Phosphatase 89 Total Protein 6.3 L Albumin 3.1 L Lipase Urine Color Yellow Urine Appearance Clear Urine pH 5.0 Ur Specific [place] >= 1.030 H Urine Protein Negative Urine Glucose (UA) Negative Urine Ketones 15 Urine Blood Negative Urine Nitrite Negative Ur Leukocyte Esterase Negative Gastric Occult Blood Influenza Type A (PCR) Influenza Type B (PCR) RSV RNA Qual (PCR) SARS-CoV-2 RNA (RT-PCR) LFTs from today increased, c/w acute calculus marla Imaging CT scan - abdomen: Radiologist's impression: Impressions Abdomen/Pelvis CT 07/23/23 12:37 IMPRESSION: Abnormal appearing gallbladder with question gallstones and gallbladder wall thickening and edema. Appearance is concerning for acute cholecystitis. Follow-up ultrasound recommended. Small esophageal hernia. Fleischner guidelines were followed. Abdomen Ultrasound 07/23/23 14:40 IMPRESSION: Findings suspicious for acalculous cholecystitis. US - abdomen: Radiologist's impression: Impressions Abdomen/Pelvis CT 07/23/23 12:37 IMPRESSION: Abnormal appearing gallbladder with question gallstones and gallbladder wall thickening and edema. Appearance is concerning for acute cholecystitis. Follow-up ultrasound recommended. Small esophageal hernia. Fleischner guidelines were followed. Abdomen Ultrasound 07/23/23 14:40 IMPRESSION: Findings suspicious for acalculous cholecystitis. Procedures Date of Service Date of Service: 07/24/23 Progress Note: A&P Assessment and plan (1) Abnormal development of bone of foot: Status: Acute (2) BMI 50.0-59.9, adult: Status: Acute (3) HTN (hypertension): Status: Acute (4) Acute cholecystitis: Status: Acute Plan CBCD demonstrates increasing white blood cell count to 19. Given the increasing LFTs and previously noted CBD of 4 mm, the patient likely is experiencing acute cholecystitis. No change in plan, plan to proceed with cholecystectomy, possible cholangiogram this morning. Will trend physical exam and LFTs postoperative to reassess the possibility of choledocholithiasis postoperatively. The plan to proceed with a laparoscopic cholecystectomy, possibly open and possible cholangiogram was again discussed. Need to stay overnight to trend labs was discussed and apparently understood. Patient stated he would notify his on-call. Void urinary bladder telecommunications network engineer to surgery, continue ceftriaxone. SCDs. For OR at 08:00. Time Spent With Patient Time: Total time managing care of this patient today ____ minutes. Quality Stroke Does the patient have a stroke diagnosis?: No VTE Prior VTE?: No VTE Risk Level:: Surgical - moderate VTE Device Contraindication: N/A - Device Ordered VTE Drug Contraindication: Treatment Not Indicated
[2023-07-24 06:53] LABS: SLIDE REVIEW VERIFIED
--- NOTE | 2023-07-24 08:57 | P.CONAN_ITS ---
[facility] Active Problems Active Problems: All Active Problems (Updated 07/24/23 @ 06:29 by Jose J Dietz MD, FACS, FASS) Abnormal development of bone of foot (Acute) Vitamin D deficiency (Acute) BMI 50.0-59.9, adult (Acute) HTN (hypertension) (Acute) Acute cholecystitis (Acute) Family History Family history of problems with anesthesia: No Surgical History History of Problems with Anesthesia: No Social History Social History (Reviewed 07/23/23 @ 14:26 by Jose J Dietz MD, FACS, [facility]) Household Members: None Housing: Apartment Do you presently have visiting nurse or other home services: No Patient Tobacco Use Status: Never used Tobacco Second Hand Smoke Exposure: No Meds Allergies Allergy/AdvReac Type Severity Reaction Status Date / Time Penicillins [PENICILLINS] Allergy Unknown Rash Verified 07/23/23 17:47 Active Medications: Current Medications Acetaminophen (Acetaminophen 325 Mg Tablet) 975 mg PO Q6H PRN PRN Reason: Pain, Mild (Pain Scale 1-3) Last Admin: 07/23/23 15:56 Dose: 975 mg Hydromorphone HCl (Hydromorphone Hcl 0.5 Mg/0.5 Ml Syringe) 0.25 mg IVPUSH Q2H PRN; Protocol PRN Reason: Pain, Moderate(Pain Scale 4-6) Last Admin: 07/24/23 04:33 Dose: 0.25 mg Lactated Ringer's (Lr) 1,000 mls @ 150 mls/hr IVCONT .Q6H40M [facility] Last Admin: 07/24/23 04:28 Dose: 150 mls/hr Ceftriaxone Sodium 2 gm/ (Sodium Chloride) 50 mls @ 100 mls/hr IV Q24H [facility] Ondansetron HCl (Ondansetron Hcl 4 Mg/2 Ml Vial) 4 mg IVPUSH Q6H PRN PRN Reason: Nausea and Vomiting Last Admin: 07/24/23 04:38 Dose: 4 mg Pantoprazole Sodium (Pantoprazole Sodium 40 Mg/10 Ml Vial) 40 mg IVPUSH DAILY@0630 [facility] Last Admin: 07/24/23 05:44 Dose: 40 mg Home Medications Medication Instructions Recorded Confirmed Last Taken Type cholecalciferol (vitamin D3) 25 25 mcg PO QAM 07/23/23 07/23/23 07/22/23 History mcg (1,000 unit) tablet lisinopril 10 1 tab PO DAILY 07/23/23 07/23/23 07/22/23 History mg-hydrochlorothiazide 12.5 mg tablet omeprazole 20 mg capsule,delayed 20 mg PO QAM 07/23/23 07/23/23 07/22/23 History release Exam Height,Weight and Vital Signs: Height 5 ft 6 in Weight 146.2 kg Last Vital Signs Temp 98.7 F 07/24/23 07:37 Pulse 99 07/24/23 07:37 Resp 18 07/24/23 07:37 BP 107/57 L 07/24/23 07:37 Pulse Ox 98 07/24/23 07:37 O2 Del Method Room Air 07/24/23 07:37 Pertinent Lab Results Pertinent Lab Results: Laboratory Tests 07/23/23 07/23/23 07/23/23 09:21 10:11 10:56 WBC 15.5 H RBC 5.68 Hgb 16.1 Hct 47.4 MCV 83.5 MCH 28.3 MCHC 34.0 RDW 12.0 Plt Count 367 MPV 8.5 L Immature Gran % (Auto) 0.5 H Neut % (Auto) 89.7 H Lymph % (Auto) 3.8 L [place] % (Auto) 5.4 Eos % (Auto) 0.3 Baso % (Auto) 0.3 Lymph # (Auto) 0.6 L [place] # (Auto) 0.8 Eos # (Auto) 0.1 Baso # (Auto) 0.1 Abs Immat Gran (auto) 0.07 H Absolute Neuts (auto) 13.9 H Absolute Nucleated RBC 0.000 Nucleated RBC % (auto) 0.0 Smear Tech's Comments Sodium 140 Potassium 3.6 Chloride 109 H Carbon Dioxide 20 L Anion Gap 15 BUN 16 Creatinine 1.00 Estim Creat Clear Calc 143.2 Estimated GFR > 60 Random Glucose 128 H Estimat Average Glucose Hemoglobin A1c % Calcium 9.9 Total Bilirubin 0.6 AST 29 ALT 71 H Alkaline Phosphatase 100 Total Protein 8.9 H Albumin 4.7 Lipase 19 Urine Color Urine Appearance Urine pH Ur Specific [place] Urine Protein Urine Glucose (UA) Urine Ketones Urine Blood Urine Nitrite Ur Leukocyte Esterase Gastric Occult Blood NEGATIVE Influenza Type A (PCR) NEGATIVE Influenza Type B (PCR) NEGATIVE RSV RNA Qual (PCR) NEGATIVE SARS-CoV-2 RNA (RT-PCR) NEGATIVE 07/23/23 07/23/23 07/24/23 14:07 16:18 05:32 WBC 19.3 H RBC 4.67 Hgb 13.4 L Hct 39.8 L MCV 85.2 MCH 28.7 MCHC 33.7 RDW 12.3 Plt Count 234 D MPV 9.8 Immature Gran % (Auto) 0.7 H Neut % (Auto) 79.8 H Lymph % (Auto) 6.9 L [place] % (Auto) 12.1 H Eos % (Auto) 0.2 Baso % (Auto) 0.3 Lymph # (Auto) 1.3 [place] # (Auto) 2.3 H Eos # (Auto) 0.0 Baso # (Auto) 0.1 Abs Immat Gran (auto) 0.13 H Absolute Neuts (auto) 15.4 H Absolute Nucleated RBC 0.000 Nucleated RBC % (auto) 0.0 Smear Tech's Comments VERIFIED Sodium 137 Potassium 3.5 Chloride 107 Carbon Dioxide 22 Anion Gap 12 BUN 11 Creatinine 0.84 Estim Creat Clear Calc 174.3 Estimated GFR > 60 Random Glucose 89 Estimat Average Glucose 97 Hemoglobin A1c % 5.0 Calcium 8.4 D Total Bilirubin 3.3 H AST 81 H ALT 98 H Alkaline Phosphatase 89 Total Protein 6.3 L Albumin 3.1 L Lipase Urine Color Yellow Urine Appearance Clear Urine pH 5.0 Ur Specific [place] >= 1.030 H Urine Protein Negative Urine Glucose (UA) Negative Urine Ketones 15 Urine Blood Negative Urine Nitrite Negative Ur Leukocyte Esterase Negative Gastric Occult Blood Influenza Type A (PCR) Influenza Type B (PCR) RSV RNA Qual (PCR) SARS-CoV-2 RNA (RT-PCR) Airway Mallampati Class: IV TM Dist: >3cm Neck ROM: Full Assessment and Plan Assessment Anesthesia Assessment: Anesthesia Plan Discussed and Chart Reviewed Final Anesthetic Review Family History of Problems with Anesthesia: No History of Problems with Anesthesia: No NPO: Yes ASA Class: III and Emergency Final Preanesthetic Review: No Changes in Pt Med Stat, Meds/Allgs Chart Reviewed, Consent Obtained/Reviewed and Anes Risks/Benef Reviewed Patient Risk: Intermediate Procedure Risk: Intermediate Anesthetic Plan Anesthetic Plan: GA Disposition: Standard PACU
[2023-07-24] MEDS: fentaNYL citrate/PF 100 MCG/2 ML VIAL 50 MCG IVPUSH (11:42)
--- NOTE | 2023-07-24 11:50 | PC.NURSE ---
lab called for stat lab draw.
--- NOTE | 2023-07-24 11:54 | PC.NURSE ---
labs being drawn at this time.
--- NOTE | 2023-07-24 11:58 | PC.NURSE ---
md linda by bedside. no changes with patients outcome. resting comfortably. labs still being drawn.
[2023-07-24 12:04] LABS: MANUAL DIFF FLAG NO
[2023-07-24 12:14] LABS: Basophils Absolute Auto 0.1 X10*3/uL (0.0-0.2); Basophils Percent Auto 0.2 % (0-2); Hematocrit 39.8 % (42.0-52.0); Hemoglobin 13.3 g/dl (14.0-18.0); Imm Gran Abs Auto 0.14 X10*3/uL (0.00-0.03); Imm Gran Pct Auto 0.7 % (0.0-0.4); Lymphocytes Absolute Auto 0.4 X10*3/uL (1.2-4.9); Lymphocytes Percent Auto 2.2 % (20-40); Mean Corpuscular HGB Conc 33.4 g/dl (31.0-36.0); Mean Corpuscular Hemoglobin 28.2 pg (27.0-33.0); Mean Corpuscular Volume 84.5 fL (80.0-98.0); Mean Platelet Volume 8.5 fL (9.4-12.4); Monocytes Absolute Auto 1.2 X10*3/uL (0.1-1.2); Monocytes Percent Auto 6.1 % (2-11); Neutrophils Absolute Auto 18.5 x10*3/uL (2.0-8.3); Neutrophils Percent Auto 90.8 % (45-73); Platelet Count 272 X10*3/uL (160-400); Red Blood Count 4.71 X10*6/uL (4.60-5.80); Red Cell Distribution Width 12.3 % (11.0-16.0); SCAN SMEAR FLAG 1; White Blood Count 20.4 X10*3/uL (4.8-10.8)
[2023-07-24 12:20] LABS: INTERNATIONAL NORM RATIO 1.8 (0.9-1.1); Prothrombin Time 21.7 SEC (11.1-13.3)
[2023-07-24 12:22] LABS: Anion Gap 13 (12-20); Blood Urea Nitrogen 11 mg/dL (9-16); Calcium 8.4 mg/dL (8.4-10.2); Carbon Dioxide 20 mmol/L (22-29); Chloride 107 mmol/L (96-108); Creatinine Clr Calc Pharmacy 166.4; Estimated Glomerular Filt Rate > 60; Glucose Random 110 mg/dL (60-115); Potassium 3.5 mmol/L (3.3-5.1); Sodium 136 mmol/L (135-145)
--- NOTE | 2023-07-24 12:24 | P.PNGS_ITS ---
Subjective Subjective Date of Service: 07/24/23 Patient reports: still having pain and tolerating liquids well Interval history: The patient is seen postop in room 384 with his uncle, Brad, and conversation with his uncle was requested. Regulatory Coordinator Maddie helped facilitate discussion. Explained to the patient and his uncle that is gallbladder did have stones and was gangrenous/necrotic. This is likely the cause of elevated LFTs this morning and I further explained that there was significant bleeding requiring a drain. The increased risk of infection was reviewed and the patient is less anxious about staying overnight or possibly longer depending on his clinical progress. Explained Gram stain and cultures will speciation or pending. Will continue ceftriaxone as ordered in the meantime. Physical Exam 2 Vital Signs: Vital Signs: Last Vital Signs Temp 97.5 F 07/24/23 12:15 Pulse 75 07/24/23 12:15 Resp 20 07/24/23 12:15 BP 110/62 07/24/23 12:15 Pulse Ox 96 07/24/23 12:15 O2 Del Method Nasal Cannula 07/24/23 12:15 O2 Flow Rate 2 07/24/23 12:15 BMI result Body Mass Index 52.0 On exam, the patient appears comfortable He is anicteric He is having no respiratory distress Abdomen is obese with appropriate incisional tenderness. DANY has expected bloody drainage, 25 cc was empty in PACU. Objective Data Active Medications Acetaminophen (Acetaminophen 325 Mg Tablet) 975 mg PO Q6H PRN PRN Reason: Pain, Mild (Pain Scale 1-3) Last Admin: 07/23/23 15:56 Dose: 975 mg Documented By: BROCK Docusate Sodium (Docusate Sodium 100 Mg Capsule) 200 mg PO BID CARLOS Fentanyl (Fentanyl Citrate/Pf 100 Mcg/2 Ml Vial) 50 mcg IVPUSH Q5M PRN; Protocol PRN Reason: Pain, Severe (Pain Scale 7-10) Last Admin: 07/24/23 11:42 Dose: 50 mcg Documented By: LINA Hydromorphone HCl (Hydromorphone Hcl 0.5 Mg/0.5 Ml Syringe) 0.25 mg IVPUSH Q2H PRN; Protocol PRN Reason: Pain, Moderate(Pain Scale 4-6) Last Admin: 07/24/23 04:33 Dose: 0.25 mg Documented By: CARLYLE Lactated Ringer's (Lr) 1,000 mls @ 150 mls/hr IVCONT .Q6H40M [facility] Last Infusion: 07/24/23 11:38 Dose: Infused Documented By: SYDNIE Ceftriaxone Sodium 2 gm/ (Sodium Chloride) 50 mls @ 100 mls/hr IV Q24H [facility] Ondansetron HCl (Ondansetron Hcl 4 Mg/2 Ml Vial) 4 mg IVPUSH Q6H PRN PRN Reason: Nausea and Vomiting Last Admin: 07/24/23 04:38 Dose: 4 mg Documented By: CARLYLE Ondansetron HCl (Ondansetron Hcl 4 Mg/2 Ml Vial) 4 mg IVPUSH ONCE PRN PRN Reason: Nausea and Vomiting Oxycodone HCl (Oxycodone Hcl Immed Release 5 Mg Tablet) 5 mg PO Q4H PRN PRN Reason: Pain, Moderate(Pain Scale 4-6) Oxycodone HCl (Oxycodone Hcl Immed Release 5 Mg Tablet) 10 mg PO Q4H PRN PRN Reason: Pain, Severe (Pain Scale 7-10) Pantoprazole Sodium (Pantoprazole Sodium 40 Mg/10 Ml Vial) 40 mg IVPUSH DAILY@0630 [facility] Last Admin: 07/24/23 05:44 Dose: 40 mg Documented By: CARLYLE Labs 07/24/23 12:00 07/24/23 12:00 Labs: Laboratory Results - last 24 hr 07/23/23 07/23/23 07/24/23 14:07 16:18 05:32 MCV 85.2 MCH 28.7 MCHC 33.7 RDW 12.3 Plt Count 234 D MPV 9.8 Immature Gran % (Auto) 0.7 H Neut % (Auto) 79.8 H Lymph % (Auto) 6.9 L [place] % (Auto) 12.1 H Eos % (Auto) 0.2 Baso % (Auto) 0.3 Lymph # (Auto) 1.3 [place] # (Auto) 2.3 H Eos # (Auto) 0.0 Baso # (Auto) 0.1 Abs Immat Gran (auto) 0.13 H Absolute Neuts (auto) 15.4 H Absolute Nucleated RBC 0.000 Nucleated RBC % (auto) 0.0 Smear Tech's Comments VERIFIED PT INR Anion Gap 12 Estim Creat Clear Calc 174.3 Estimated GFR > 60 Random Glucose 89 Estimat Average Glucose 97 Hemoglobin A1c % 5.0 Calcium 8.4 D Total Bilirubin 3.3 H AST 81 H ALT 98 H Alkaline Phosphatase 89 Total Protein 6.3 L Albumin 3.1 L Urine Color Yellow Urine Appearance Clear Urine pH 5.0 Ur Specific [place] >= 1.030 H Urine Protein Negative Urine Glucose (UA) Negative Urine Ketones 15 Urine Blood Negative Urine Nitrite Negative Ur Leukocyte Esterase Negative 07/24/23 12:00 MCV 84.5 MCH 28.2 MCHC 33.4 RDW 12.3 Plt Count 272 MPV 8.5 L Immature Gran % (Auto) 0.7 H Neut % (Auto) 90.8 H Lymph % (Auto) 2.2 L [place] % (Auto) 6.1 Eos % (Auto) 0.0 Baso % (Auto) 0.2 Lymph # (Auto) 0.4 L [place] # (Auto) 1.2 Eos # (Auto) 0.0 Baso # (Auto) 0.1 Abs Immat Gran (auto) 0.14 H Absolute Neuts (auto) 18.5 H Absolute Nucleated RBC 0.000 Nucleated RBC % (auto) 0.0 Smear Tech's Comments PT 21.7 H INR 1.8 H Anion Gap 13 Estim Creat Clear Calc 166.4 Estimated GFR > 60 Random Glucose 110 Estimat Average Glucose Hemoglobin A1c % Calcium 8.4 Total Bilirubin AST ALT Alkaline Phosphatase Total Protein Albumin Urine Color Urine Appearance Urine pH Ur Specific [place] Urine Protein Urine Glucose (UA) Urine Ketones Urine Blood Urine Nitrite Ur Leukocyte Esterase Procedures Date of Service Date of Service: 07/24/23 Progress Note: A&P Assessment and plan (1) Acute gangrenous cholecystitis: Status: Acute (2) Scar tissue: Status: Acute (3) BMI 50.0-59.9, adult: Status: Acute (4) HTN (hypertension): Status: Acute Plan See orders Expect the hemoglobin to fall due to both dilution and intraoperative blood loss. Will continue to monitor the patient's protime given its elevation and INR 1.8. Monitor for ongoing bleeding. DANY drain is in the fossa in Morison's pouch and any ongoing bleeding will be demonstrated. Good adherent clot was present intraoperatively. No anticoagulation due to bleeding. At the patient's request, discussion regarding the intra-abdominal adhesions that required lysis suggesting that this process had been going on for years, the patient's fatty liver and enlargement with the increased risk for bleed, bile leak and stone spillage due to the gangrenous nature and increased risk for infection was all discussed with the patient his Uncle Brad. Patient is currently tolerating clear liquids and staff is working on pain management. See orders. Please call with questions, otherwise we will reassess in the morning. Time Spent With Patient Time: Total time managing care of this patient today ____ minutes. Quality Stroke Does the patient have a stroke diagnosis?: No VTE Prior VTE?: No VTE Risk Level:: Surgical - moderate VTE Device Contraindication: N/A - Device Ordered VTE Drug Contraindication: Treatment Not Indicated
[2023-07-24] MEDS: Acetaminophen 325 MG TABLET 975 MG PO (13:24)
[2023-07-24] MEDS: oxyCODONE HCl Immed Release 5 MG TABLET PO (13:24)
[2023-07-24] MEDS: cefTRIAXone sodium 2 GM in 0.9 % Sodium Chloride 50 ML IV (15:46)
[2023-07-24] MEDS: oxyCODONE HCl Immed Release 5 MG TABLET 10 MG PO ×2 (15:47→20:47)
--- NOTE | 2023-07-24 16:11 | MHC.CM.PN ---
PT REPORTS HE LIVES WITH HIS GRANDMOTHER AND IS INDEPENDENT WITH CARE HE HAS NO DME AND NO HOME SERVICES HE REPORTS HE HAS A HCP NAMING HIS UNCLE HIS AGENT, COPY REQUESTED PCP: RENU MARINELLI DCP: HOME NO SERVICES VIA FAMILY TRANSPORT
[2023-07-24] MEDS: Docusate Sodium 100 MG CAPSULE 200 MG PO (20:46)
[2023-07-25] VITALS (7 sets, daily range): BP systolic 108–128; BP diastolic 57–70; PULSE 93–108; RESP 16–20; TEMP 36–37; O2SAT 93–96
[2023-07-25] MEDS: Lactated Ringers 1,000 ML 150 ML IVCONT ×4 (00:04→19:05)
[2023-07-25] MEDS: oxyCODONE HCl Immed Release 5 MG TABLET 10 MG PO ×3 (03:06→19:37)
[2023-07-25] MEDS: Pantoprazole Sodium 40 MG/10 ML VIAL IVPUSH (05:39)
[2023-07-25 07:02] LABS: INTERNATIONAL NORM RATIO 1.6 (0.9-1.1)
[2023-07-25] MEDS: HYDROmorphone HCl 0.5 MG/0.5 ML SYRINGE 0.25 MG IVPUSH ×2 (07:55→13:28)
[2023-07-25] MEDS: Docusate Sodium 100 MG CAPSULE 200 MG PO ×2 (07:56→19:40)
[2023-07-25] MEDS: ondansetron HCL 4 MG/2 ML VIAL IVPUSH (08:04)
--- NOTE | 2023-07-25 08:49 | P.PNGS_ITS ---
Subjective Subjective Date of Service: 07/25/23 Patient reports: feels better, still having pain, tolerating liquids well and flatus Interval history: The patient reports that he is tolerating his diet of liquids and having some flatus but he still has right upper quadrant pain. He notes that it is improving. He denies chest pain, difficulty breathing or shortness of breath. He notes that his labs were drawn earlier today. Physical Exam 2 Vital Signs: Vital Signs: Last Vital Signs Temp 97.1 F 07/25/23 07:21 Pulse 107 H 07/25/23 07:21 Resp 18 07/25/23 07:21 BP 115/59 L 07/25/23 07:21 Pulse Ox 96 07/25/23 07:21 O2 Del Method Room Air 07/25/23 07:21 O2 Flow Rate 2 07/24/23 15:19 BMI result Body Mass Index 52.0 On exam, the patient is sitting out of bed and chair He is anicteric He is having no respiratory difficulty His abdomen is obese with right upper quadrant tenderness, dressings are clean dry and intact, DANY showed predominantly serosanguineous fluid with no dark/bilious drainage Objective Data Active Medications Acetaminophen (Acetaminophen 325 Mg Tablet) 975 mg PO Q6H PRN PRN Reason: Pain, Mild (Pain Scale 1-3) Last Admin: 07/24/23 13:24 Dose: 975 mg Documented By: SYDNIE Docusate Sodium (Docusate Sodium 100 Mg Capsule) 200 mg PO BID CARLOS Last Admin: 07/25/23 07:56 Dose: 200 mg Documented By: MARY Fentanyl (Fentanyl Citrate/Pf 100 Mcg/2 Ml Vial) 50 mcg IVPUSH Q5M PRN; Protocol PRN Reason: Pain, Severe (Pain Scale 7-10) Last Admin: 07/24/23 11:42 Dose: 50 mcg Documented By: LINA Hydromorphone HCl (Hydromorphone Hcl 0.5 Mg/0.5 Ml Syringe) 0.25 mg IVPUSH Q2H PRN; Protocol PRN Reason: Pain, Moderate(Pain Scale 4-6) Last Admin: 07/25/23 07:55 Dose: 0.25 mg Documented By: MARY Lactated Ringer's (Lr) 1,000 mls @ 150 mls/hr IVCONT .Q6H40M [facility]S [facility]CLUDE 234 BEDS AT THE [facility] Last Admin: 07/25/23 06:11 Dose: 150 mls/hr Documented By: CARLYLE Ceftriaxone Sodium 2 gm/ (Sodium Chloride) 50 mls @ 100 mls/hr IV Q24H [facility]S INCLUDE 234 BEDS AT THE [facility] Last Infusion: 07/24/23 16:51 Dose: Infused Documented By: SYDNIE Ondansetron HCl (Ondansetron Hcl 4 Mg/2 Ml Vial) 4 mg IVPUSH Q6H PRN PRN Reason: Nausea and Vomiting Last Admin: 07/25/23 08:04 Dose: 4 mg Documented By: MARY Ondansetron HCl (Ondansetron Hcl 4 Mg/2 Ml Vial) 4 mg IVPUSH ONCE PRN PRN Reason: Nausea and Vomiting Oxycodone HCl (Oxycodone Hcl Immed Release 5 Mg Tablet) 5 mg PO Q4H PRN PRN Reason: Pain, Moderate(Pain Scale 4-6) Last Admin: 07/24/23 13:24 Dose: 5 mg Documented By: SYDNIE Oxycodone HCl (Oxycodone Hcl Immed Release 5 Mg Tablet) 10 mg PO Q4H PRN PRN Reason: Pain, Severe (Pain Scale 7-10) Last Admin: 07/25/23 03:06 Dose: 10 mg Documented By: CARLYLE Pantoprazole Sodium (Pantoprazole Sodium 40 Mg/10 Ml Vial) 40 mg IVPUSH DAILY@0630 COUNTS INCLUDE 234 BEDS AT THE [facility] Last Admin: 07/25/23 05:39 Dose: 40 mg Documented By: CARLYLE Labs 07/24/23 12:00 07/24/23 12:00 Labs: Laboratory Results - last 24 hr 07/24/23 07/25/23 12:00 05:39 MCV 84.5 MCH 28.2 MCHC 33.4 RDW 12.3 Plt Count 272 MPV 8.5 L Immature Gran % (Auto) 0.7 H Neut % (Auto) 90.8 H Lymph % (Auto) 2.2 L [place] % (Auto) 6.1 Eos % (Auto) 0.0 Baso % (Auto) 0.2 Lymph # (Auto) 0.4 L [place] # (Auto) 1.2 Eos # (Auto) 0.0 Baso # (Auto) 0.1 Abs Immat Gran (auto) 0.14 H Absolute Neuts (auto) 18.5 H Absolute Nucleated RBC 0.000 Nucleated RBC % (auto) 0.0 Hold Purple Top SEE NOTE PT 21.7 H 19.0 H INR 1.8 H 1.6 H Anion Gap 13 Estim Creat Clear Calc 166.4 Estimated GFR > 60 Random Glucose 110 Calcium 8.4 DUE TO COMPUTER ISSUES, THE LABS INCLUDING CBCD AND CMP WERE ORDERED, DRAWN BUT NOT DRAWN. I SPOKE WITH A CHEMISTRY LAB WHO HAS SPECIMENS AND REORDERED THESE TESTS STAT. THEY WILL RUN A CBC AND CMP ORDERED. Microbiology Microbiology Results: GRAM STAIN AND CULTURE REMAINS PENDING Procedures Date of Service Date of Service: 07/25/23 Progress Note: A&P Assessment and plan (1) Acute gangrenous cholecystitis: Status: Acute (2) Scar tissue: Status: Acute (3) BMI 50.0-59.9, adult: Status: Acute (4) HTN (hypertension): Status: Acute Plan Advanced to low-fat diet Labs are currently pending; microbiology currently pending. Continue ceftriaxone as ordered. Encourage out of bed/ambulation, incentive spirometry. Will repeat labs again in the morning, await microbiology and assess for possible discharge tomorrow. Time Spent With Patient Time: Total time managing care of this patient today ____ minutes. Quality Stroke Does the patient have a stroke diagnosis?: No VTE Prior VTE?: No VTE Risk Level:: Surgical - moderate VTE Device Contraindication: N/A - Device Ordered VTE Drug Contraindication: Treatment Not Indicated
[2023-07-25 08:57] LABS: Basophils Percent Auto 0.2 % (0-2); Eosinophils Percent Auto 0.1 % (0-4); Hemoglobin 12.7 g/dl (14.0-18.0); Imm Gran Pct Auto 0.5 % (0.0-0.4); Lymphocytes Absolute Auto 1.1 X10*3/uL (1.2-4.9); Lymphocytes Percent Auto 5.6 % (20-40); Mean Corpuscular HGB Conc 33.4 g/dl (31.0-36.0); Mean Corpuscular Hemoglobin 28.9 pg (27.0-33.0); Mean Corpuscular Volume 86.4 fL (80.0-98.0); Mean Platelet Volume 9.6 fL (9.4-12.4); Monocytes Absolute Auto 1.8 X10*3/uL (0.1-1.2); Neutrophils Absolute Auto 16.8 x10*3/uL (2.0-8.3); Neutrophils Percent Auto 84.5 % (45-73); Platelet Count 311 X10*3/uL (160-400); Red Cell Distribution Width 12.5 % (11.0-16.0); SCAN SMEAR FLAG 1; White Blood Count 19.9 X10*3/uL (4.8-10.8)
[2023-07-25 09:00] LABS: MANUAL DIFF FLAG NO; Monocytes Percent Auto 9.1 % (2-11)
[2023-07-25 09:06] LABS: Alanine Aminotransferase 97 U/L (0-40); Albumin Level 3.3 g/dL (3.5-5.0); Alkaline Phosphatase 100 U/L (39-117); Anion Gap 16 (12-20); Aspartate Amino Transferase 43 U/L (5-37); Bilirubin Total 1.9 mg/dL (0.0-1.0); Blood Urea Nitrogen 11 mg/dL (9-16); Calcium 8.8 mg/dL (8.4-10.2); Carbon Dioxide 21 mmol/L (22-29); Chloride 102 mmol/L (96-108); Creatinine Clr Calc Pharmacy 162.7; Estimated Glomerular Filt Rate > 60; Glucose Random 101 mg/dL (60-115); Potassium 3.3 mmol/L (3.3-5.1); Sodium 136 mmol/L (135-145); Total Protein 6.7 g/dL (6.5-8.0)
[2023-07-25] MEDS: cefTRIAXone sodium 2 GM in 0.9 % Sodium Chloride 50 ML IV (13:28)
[2023-07-25] MEDS: Acetaminophen 325 MG TABLET 975 MG PO (19:37)
[2023-07-26] MEDS: Lactated Ringers 1,000 ML 150 ML IVCONT (01:52)
[2023-07-26 04:00] VITALS: BP 131/81; PULSE 111; RESP 16; TEMP 36; O2SAT 97
[2023-07-26] MEDS: oxyCODONE HCl Immed Release 5 MG TABLET 10 MG PO ×4 (04:24→23:39)
[2023-07-26] MEDS: Pantoprazole Sodium 40 MG/10 ML VIAL IVPUSH (06:06)
[2023-07-26 06:10] LABS: MANUAL DIFF FLAG NO
[2023-07-26 06:21] LABS: Basophils Absolute Auto 0.1 X10*3/uL (0.0-0.2); Basophils Percent Auto 0.4 % (0-2); Eosinophils Absolute Auto 0.1 X10*3/uL (0.0-0.4); Eosinophils Percent Auto 1.1 % (0-4); Hematocrit 36.7 % (42.0-52.0); Hemoglobin 12.3 g/dl (14.0-18.0); Imm Gran Abs Auto 0.07 X10*3/uL (0.00-0.03); Imm Gran Pct Auto 0.6 % (0.0-0.4); Lymphocytes Absolute Auto 1.6 X10*3/uL (1.2-4.9); Lymphocytes Percent Auto 13.1 % (20-40); Mean Corpuscular HGB Conc 33.5 g/dl (31.0-36.0); Mean Corpuscular Hemoglobin 28.7 pg (27.0-33.0); Mean Corpuscular Volume 85.5 fL (80.0-98.0); Mean Platelet Volume 9.1 fL (9.4-12.4); Monocytes Absolute Auto 1.2 X10*3/uL (0.1-1.2); Monocytes Percent Auto 9.6 % (2-11); Neutrophils Absolute Auto 9.2 x10*3/uL (2.0-8.3); Neutrophils Percent Auto 75.2 % (45-73); Platelet Count 315 X10*3/uL (160-400); Red Blood Count 4.29 X10*6/uL (4.60-5.80); Red Cell Distribution Width 12.2 % (11.0-16.0); White Blood Count 12.2 X10*3/uL (4.8-10.8)
[2023-07-26 06:23] LABS: INTERNATIONAL NORM RATIO 1.2 (0.9-1.1); Prothrombin Time 14.4 SEC (11.1-13.3)
[2023-07-26 06:26] LABS: Alanine Aminotransferase 68 U/L (0-40); Albumin Level 3.3 g/dL (3.5-5.0); Alkaline Phosphatase 91 U/L (39-117); Anion Gap 13 (12-20); Aspartate Amino Transferase 29 U/L (5-37); Bilirubin Total 1.3 mg/dL (0.0-1.0); Blood Urea Nitrogen 9 mg/dL (9-16); Carbon Dioxide 24 mmol/L (22-29); Chloride 102 mmol/L (96-108); Creatinine Clr Calc Pharmacy 162.7; Estimated Glomerular Filt Rate > 60; Glucose Random 84 mg/dL (60-115); Potassium 2.9 mmol/L (3.3-5.1); Sodium 136 mmol/L (135-145); Total Protein 6.8 g/dL (6.5-8.0)
--- NOTE | 2023-07-26 06:49 | PM.PNGS ---
Subjective Subjective Date of Service: 07/26/23 Patient reports: no new complaints and still having pain Interval history: The patient is seen this morning at about 0 700. He denies any new significant complaints such as chest pain, difficulty breathing but notes that his appetite is somewhat poor. He has had no nausea or vomiting but he continues to have some right upper quadrant pain and notes he just does not feel like eating. He reports he has been out of bed and walking and trying to use incentive spirometry as recommended but his right upper quadrant pain occasionally limits deep breath. Physical Exam Vital Signs: Vital Signs: Last Vital Signs Temp 96.8 F 07/26/23 04:00 Pulse 111 H 07/26/23 04:00 Resp 16 07/26/23 04:00 BP 131/81 07/26/23 04:00 Pulse Ox 97 07/26/23 04:00 O2 Del Method Room Air 07/26/23 04:00 O2 Flow Rate 2 07/24/23 15:19 BMI result Body Mass Index 52.0 The patient appears comfortable and well rested He is having no respiratory distress His abdomen is obese and he still has right upper quadrant discomfort with no peritoneal sign 30cc serosanguineous DANY drainage noted by staff & recorded Objective Data Active Medications Acetaminophen (Acetaminophen 325 Mg Tablet) 975 mg PO Q6H PRN PRN Reason: Pain, Mild (Pain Scale 1-3) Last Admin: 07/25/23 19:37 Dose: 975 mg Documented By: RUPERTO Docusate Sodium (Docusate Sodium 100 Mg Capsule) 200 mg PO BID CARLOS Last Admin: 07/25/23 19:40 Dose: 200 mg Documented By: RUPERTO Fentanyl (Fentanyl Citrate/Pf 100 Mcg/2 Ml Vial) 50 mcg IVPUSH Q5M PRN; Protocol PRN Reason: Pain, Severe (Pain Scale 7-10) Last Admin: 07/24/23 11:42 Dose: 50 mcg Documented By: LINA Hydromorphone HCl (Hydromorphone Hcl 0.5 Mg/0.5 Ml Syringe) 0.25 mg IVPUSH Q2H PRN; Protocol PRN Reason: Pain, Moderate(Pain Scale 4-6) Last Admin: 07/25/23 13:28 Dose: 0.25 mg Documented By: MARY Lactated Ringer's (Lr) 1,000 mls @ 150 mls/hr IVCONT .Q6H40M [facility] Last Admin: 07/26/23 01:52 Dose: 150 mls/hr Documented By: LIUDMILA Ceftriaxone Sodium 2 gm/ (Sodium Chloride) 50 mls @ 100 mls/hr IV Q24H [facility] Last Infusion: 07/25/23 13:58 Dose: Infused Documented By: MARY Ondansetron HCl (Ondansetron Hcl 4 Mg/2 Ml Vial) 4 mg IVPUSH Q6H PRN PRN Reason: Nausea and Vomiting Last Admin: 07/25/23 08:04 Dose: 4 mg Documented By: MARY Ondansetron HCl (Ondansetron Hcl 4 Mg/2 Ml Vial) 4 mg IVPUSH ONCE PRN PRN Reason: Nausea and Vomiting Oxycodone HCl (Oxycodone Hcl Immed Release 5 Mg Tablet) 5 mg PO Q4H PRN PRN Reason: Pain, Moderate(Pain Scale 4-6) Last Admin: 07/24/23 13:24 Dose: 5 mg Documented By: SYDNIE Oxycodone HCl (Oxycodone Hcl Immed Release 5 Mg Tablet) 10 mg PO Q4H PRN PRN Reason: Pain, Severe (Pain Scale 7-10) Last Admin: 07/26/23 04:24 Dose: 10 mg Documented By: LIUDMILA Pantoprazole Sodium (Pantoprazole Sodium 40 Mg/10 Ml Vial) 40 mg IVPUSH DAILY@0630 [facility] Last Admin: 07/26/23 06:06 Dose: 40 mg Documented By: LIUDMILA Labs 07/26/23 05:55 07/26/23 05:55 Labs: Laboratory Results - last 24 hr 07/25/23 07/26/23 05:39 05:55 MCV 86.4 85.5 MCH 28.9 28.7 MCHC 33.4 33.5 RDW 12.5 12.2 Plt Count 311 315 MPV 9.6 9.1 L Immature Gran % (Auto) 0.5 H 0.6 H Neut % (Auto) 84.5 H 75.2 H Lymph % (Auto) 5.6 L 13.1 L [place] % (Auto) 9.1 9.6 Eos % (Auto) 0.1 1.1 Baso % (Auto) 0.2 0.4 Lymph # (Auto) 1.1 L 1.6 [place] # (Auto) 1.8 H 1.2 Eos # (Auto) 0.0 0.1 Baso # (Auto) 0.0 0.1 Abs Immat Gran (auto) 0.10 H 0.07 H Absolute Neuts (auto) 16.8 H 9.2 H Absolute Nucleated RBC 0.000 0.000 Nucleated RBC % (auto) 0.0 0.0 PT 19.0 H 14.4 H D INR 1.6 H 1.2 H Anion Gap 16 13 Estim Creat Clear Calc 162.7 162.7 Estimated GFR > 60 > 60 Random Glucose 101 84 Calcium 8.8 9.0 Total Bilirubin 1.9 H 1.3 H AST 43 H 29 ALT 97 H 68 H Alkaline Phosphatase 100 91 Total Protein 6.7 6.8 Albumin 3.3 L 3.3 L Microbiology Microbiology Results: Microbiology 07/24/23 Unknown Gram Stain - Final Gallbladder Routine Culture - Preliminary Culture in progress. GPR & GNR present on Gram stain, speciation & sensitivities pending Procedures Date of Service Date of Service: 07/26/23 Progress Note: A&P Assessment and plan (1) Acute gangrenous cholecystitis: Status: Acute (2) Scar tissue: Status: Acute (3) BMI 50.0-59.9, adult: Status: Acute (4) HTN (hypertension): Status: Acute Plan Please see orders for potassium, 40 mEq p.o. today. Will recheck K. Continue present management. Stop LR. I did explain to the patient that given the positive bacterial infection and leukocytosis, I would leave the drain for the time being. Will reassess later today. Await speciation and sensitivities of the GPR & GNR found in the gallbladder. Given antibiotics administered in the ER, it is possible there will be no growth. Time Spent With Patient Time: Total time managing care of this patient today ____ minutes. Quality Stroke Does the patient have a stroke diagnosis?: No VTE Prior VTE?: No VTE Risk Level:: Surgical - moderate VTE Device Contraindication: N/A - Device Ordered VTE Drug Contraindication: Treatment Not Indicated
[2023-07-26 07:44] VITALS: BP 108/53; PULSE 101; RESP 20; TEMP 36.4; O2SAT 93
[2023-07-26] MEDS: Docusate Sodium 100 MG CAPSULE 200 MG PO ×2 (08:18→20:20)
[2023-07-26] MEDS: Potassium Chloride Packet 20 MEQ PACKET 40 MEQ PO (08:18)
[2023-07-26 11:42] VITALS: BP 119/59; PULSE 103; RESP 20; TEMP 36.4; O2SAT 94
[2023-07-26] MEDS: HYDROmorphone HCl 0.5 MG/0.5 ML SYRINGE 0.25 MG IVPUSH (11:42)
--- NOTE | 2023-07-26 14:27 | HO.POSTANES ---
Post Anesthesia Evaluation Post Anesthesia Evaluation Date of Service: 07/26/23 Vital Signs: Vital Signs Temp Pulse Resp BP Pulse Ox O2 Del Method 07/26/23 11:42 97.5 F 103 H 20 119/59 L 94 Room Air 07/26/23 07:44 97.6 F 101 H 20 108/53 L 93 Room Air 07/26/23 04:00 96.8 F 111 H 16 131/81 97 Room Air Anesthesia: General Endotracheal-GETA Mental Status: Awake Pain Control: Satisfactory Nausea/Vomiting: None Hydration: Adequate Anesthesia-Related Issues: No Anes. Related Issues
[2023-07-26] MEDS: cefTRIAXone sodium 2 GM in 0.9 % Sodium Chloride 50 ML IV (14:29)
--- NOTE | 2023-07-26 14:32 | P.CDIM_ITS ---
PROVIDER RESPONSE TEXT: To clarify, the appropriate diagnosis supported by the clinical indicators: Localized infection only, without systemic illness: necrotic gallbladder; intra-op aspiration has GNR & GPR on Gram stain; cultues pending. +Bactobilia QUERY TEXT: PHYSICIAN'S DOCUMENTATION REQUEST Date of Query: 07/26/2023 11:23 AM EST Patient Name: Kristofer Grey Admit Date: 07/23/2023 Dear Jose J Dietz, A review of the medical record indicates additional documentation may be needed. Please review below and update the documentation accordingly. Clinical Indicators: To OR on 07/23/23, per Operative Note Intraoperative findings: [Necrotic/gangrenous cholecystitis wit h stones, enlarged fatty liver, edema to the karen and cystic triangle In spite of careful retraction, the whole from the aspiration continue to enlarge and some stone and sludge from the gallbladder were were released, quickly contained. On Ceftriaxone Sodium 2 Gm in Sodium Chloride 50 mls @ 100 mls/hr IV Q 24H On 07/26/23: WBC 12.2 Heart rate 111 Please clarify which, if any, of the following is the most likely etiology of the above symptoms and treatment rendered: Sepsis Localized infection only, without systemic illness Indicate the site/source, such as UTI, pneumonia, etc. Other (explain) Clinically unable to determine (explain) Thank you, Sandee José RN Use of terms such as suspected, likely, concern for, or probable (associated with a specific diagnosi s that is being evaluated, monitored, or treated as if it exists) are acceptable and can be coded in the inpatient se tting, when documented at the time of discharge. Please use your independent medical judgment in providing your response. THIS QUERY IS PART OF THE PERMANENT MEDICAL RECORD
--- NOTE | 2023-07-26 14:32 | P.CDIM_ITS ---
PROVIDER RESPONSE TEXT: To clarify, the appropriate diagnosis supported by the clinical indicators: Hypokalemia QUERY TEXT: PHYSICIAN'S DOCUMENTATION REQUEST Date of Query: 07/26/2023 11:34 AM EST Patient Name: Kristofer Grey Admit Date: 07/23/2023 Dear Jose J Dietz, A review of the medical record indicates additional documentation may be needed. Please review below and update the documentation accordingly. Clinical Indicators: On 07/26/23, potassium level 2.9 Treated with Klor-Con 40 meq po once on 07/26/23 Based on the above, could you clarify the appropriate diagnosis, if significant, that supports the ab ove abnormalities and additional evaluation, monitoring, and/or treatment rendered: Hypokalemia Labs indicate a diagnosis of (please specify) Other (explain) Clinically unable to determine (explain) Thank you, Sandee José RN Use of terms such as suspected, likely, concern for, or probable (associated with a specific diagnosi s that is being evaluated, monitored, or treated as if it exists) are acceptable and can be coded in the inpatient se tting, when documented at the time of discharge. Please use your independent medical judgment in providing your response. THIS QUERY IS PART OF THE PERMANENT MEDICAL RECORD
--- NOTE | 2023-07-26 15:02 | MHC.CM.PN ---
No dc today per MD rounds. DP home self care. Family will provide transportation home.
[2023-07-26 15:26] VITALS: BP 148/61; PULSE 97; RESP 20; TEMP 36.4; O2SAT 94
[2023-07-26 18:51] LABS: Potassium 3.1 mmol/L (3.3-5.1)
[2023-07-26 20:00] VITALS: BP 114/58; PULSE 107; RESP 18; TEMP 37.1; O2SAT 94
--- NOTE | 2023-07-26 22:33 | PC.NURSE ---
K level 3.1 ,Dr. Magdaleno notified
[2023-07-26] MEDS: Potassium Chloride Packet 20 MEQ PACKET PO (23:39)
[2023-07-27] VITALS: BP 113/66; PULSE 101; RESP 18; TEMP 36.6; O2SAT 96
[2023-07-27 04:00] VITALS: BP 113/62; PULSE 90; RESP 18; TEMP 36.7; O2SAT 95
[2023-07-27] MEDS: Pantoprazole Sodium 40 MG/10 ML VIAL IVPUSH (06:16)
[2023-07-27] MEDS: polyethylene glycoL 3350 17 GM POWD.PACK PO (06:39)
--- NOTE | 2023-07-27 06:59 | PM.PNGS ---
Subjective Subjective Date of Service: 07/27/23 Patient reports: no new complaints, feels better, still having pain and tolerating a regular diet Interval history: The patient is postop day 3 from [facility] for gangrenous acute cholecystitis. Intraoperative culture showed both Gram-positive rods and Gram-negative rods but there is no growth to cultures at this time. He is tolerating his diet, does not believe he is passing flatus and is complaining of itching at his drain dressing site. He otherwise has no complaints of chest pain, shortness of breath, nausea or vomiting. Physical Exam Vital Signs: Vital Signs: Last Vital Signs Temp 98.0 F 07/27/23 04:00 Pulse 90 07/27/23 04:00 Resp 18 07/27/23 04:00 BP 113/62 07/27/23 04:00 Pulse Ox 95 07/27/23 04:00 O2 Del Method Room Air 07/27/23 04:00 O2 Flow Rate 2 07/24/23 15:19 BMI result Body Mass Index 52.0 On exam, he is nontoxic He is in no acute distress He is having no respiratory difficulty Abdominal exam is unchanged with serosanguineous drainage in the DANY and minimal-moderate expected incisional tenderness with no peritoneal sign Objective Data Active Medications Acetaminophen (Acetaminophen 325 Mg Tablet) 975 mg PO Q6H PRN PRN Reason: Pain, Mild (Pain Scale 1-3) Last Admin: 07/25/23 19:37 Dose: 975 mg Documented By: RUPERTO Docusate Sodium (Docusate Sodium 100 Mg Capsule) 200 mg PO BID CARLOS Last Admin: 07/26/23 20:20 Dose: 200 mg Documented By: HERI Fentanyl (Fentanyl Citrate/Pf 100 Mcg/2 Ml Vial) 50 mcg IVPUSH Q5M PRN; Protocol PRN Reason: Pain, Severe (Pain Scale 7-10) Last Admin: 07/24/23 11:42 Dose: 50 mcg Documented By: LINA Hydromorphone HCl (Hydromorphone Hcl 0.5 Mg/0.5 Ml Syringe) 0.25 mg IVPUSH Q2H PRN; Protocol PRN Reason: Pain, Moderate(Pain Scale 4-6) Last Admin: 07/26/23 11:42 Dose: 0.25 mg Documented By: DESTINEE Ceftriaxone Sodium 2 gm/ (Sodium Chloride) 50 mls @ 100 mls/hr IV Q24H [facility] Last Infusion: 07/26/23 15:14 Dose: Infused Documented By: DESTINEE Ondansetron HCl (Ondansetron Hcl 4 Mg/2 Ml Vial) 4 mg IVPUSH Q6H PRN PRN Reason: Nausea and Vomiting Last Admin: 07/25/23 08:04 Dose: 4 mg Documented By: MARY Ondansetron HCl (Ondansetron Hcl 4 Mg/2 Ml Vial) 4 mg IVPUSH ONCE PRN PRN Reason: Nausea and Vomiting Oxycodone HCl (Oxycodone Hcl Immed Release 5 Mg Tablet) 5 mg PO Q4H PRN PRN Reason: Pain, Moderate(Pain Scale 4-6) Last Admin: 07/24/23 13:24 Dose: 5 mg Documented By: SYDNIE Oxycodone HCl (Oxycodone Hcl Immed Release 5 Mg Tablet) 10 mg PO Q4H PRN PRN Reason: Pain, Severe (Pain Scale 7-10) Last Admin: 07/26/23 23:39 Dose: 10 mg Documented By: LIUDMILA Labs 07/26/23 05:55 07/26/23 18:06 Labs: Labs from 07/27 have not been drawn yet and are pending Microbiology Microbiology Results: Microbiology 07/24/23 Unknown Gram Stain - Final Gallbladder Routine Culture - Preliminary No growth to date. Procedures Date of Service Date of Service: 07/27/23 Progress Note: A&P Assessment and plan (1) Acute gangrenous cholecystitis: Status: Acute (2) Scar tissue: Status: Acute (3) BMI 50.0-59.9, adult: Status: Acute (4) HTN (hypertension): Status: Acute Plan Continue present management. Further recommendations pending morning labs. Cultures are currently pending; drain output is non bilious and diminishing, however since the patient had to different bacteria in his gallbladder, I will keep the drain for now. See orders regarding dressing change. Time Spent With Patient Time: Total time managing care of this patient today ____ minutes. Quality Stroke Does the patient have a stroke diagnosis?: No VTE Prior VTE?: No VTE Risk Level:: Surgical - moderate VTE Device Contraindication: N/A - Device Ordered VTE Drug Contraindication: Treatment Not Indicated
--- NOTE | 2023-07-27 07:21 | P.PNGS_ITS ---
Subjective Subjective Date of Service: 07/27/23 Patient reports: no new complaints, still having pain and tolerating a regular diet Interval history: The patient is tolerating his regular diet and reports ongoing epigastric and right upper quadrant pain. He believes it is improving. He has been up and walking, voiding his bladder but not had a bowel movement yet. He denies any flatus. He otherwise denies chest pain, difficulty breathing or shortness of breath. Physical Exam 2 Vital Signs: Vital Signs: Last Vital Signs Temp 98.0 F 07/27/23 04:00 Pulse 90 07/27/23 04:00 Resp 18 07/27/23 04:00 BP 113/62 07/27/23 04:00 Pulse Ox 95 07/27/23 04:00 O2 Del Method Room Air 07/27/23 04:00 O2 Flow Rate 2 07/24/23 15:19 BMI result Body Mass Index 52.0 On exam, he is nontoxic He is having no respiratory difficulty His abdominal exam is unchanged there is mild epigastric and right upper quadrant tenderness and serosanguineous drainage from the DANY with no evidence of bilious output. Objective Data Active Medications Acetaminophen (Acetaminophen 325 Mg Tablet) 975 mg PO Q6H PRN PRN Reason: Pain, Mild (Pain Scale 1-3) Last Admin: 07/25/23 19:37 Dose: 975 mg Documented By: RUPERTO Docusate Sodium (Docusate Sodium 100 Mg Capsule) 200 mg PO BID [facility] Last Admin: 07/26/23 20:20 Dose: 200 mg Documented By: HERI Fentanyl (Fentanyl Citrate/Pf 100 Mcg/2 Ml Vial) 50 mcg IVPUSH Q5M PRN; Protocol PRN Reason: Pain, Severe (Pain Scale 7-10) Last Admin: 07/24/23 11:42 Dose: 50 mcg Documented By: LINA Hydromorphone HCl (Hydromorphone Hcl 0.5 Mg/0.5 Ml Syringe) 0.25 mg IVPUSH Q2H PRN; Protocol PRN Reason: Pain, Moderate(Pain Scale 4-6) Last Admin: 07/26/23 11:42 Dose: 0.25 mg Documented By: DESTINEE Ceftriaxone Sodium 2 gm/ (Sodium Chloride) 50 mls @ 100 mls/hr IV Q24H [facility] Last Infusion: 07/26/23 15:14 Dose: Infused Documented By: DESTINEE Ondansetron HCl (Ondansetron Hcl 4 Mg/2 Ml Vial) 4 mg IVPUSH Q6H PRN PRN Reason: Nausea and Vomiting Last Admin: 07/25/23 08:04 Dose: 4 mg Documented By: MARY Ondansetron HCl (Ondansetron Hcl 4 Mg/2 Ml Vial) 4 mg IVPUSH ONCE PRN PRN Reason: Nausea and Vomiting Oxycodone HCl (Oxycodone Hcl Immed Release 5 Mg Tablet) 5 mg PO Q4H PRN PRN Reason: Pain, Moderate(Pain Scale 4-6) Last Admin: 07/24/23 13:24 Dose: 5 mg Documented By: SYDNIE Oxycodone HCl (Oxycodone Hcl Immed Release 5 Mg Tablet) 10 mg PO Q4H PRN PRN Reason: Pain, Severe (Pain Scale 7-10) Last Admin: 07/26/23 23:39 Dose: 10 mg Documented By: LIUDMILA Labs 07/26/23 05:55 07/26/23 18:06 Labs: This morning's labs 07/27/2023 are currently pending Microbiology Microbiology Results: Microbiology 07/24/23 Unknown Gram Stain - Final Gallbladder Routine Culture - Preliminary No growth to date. Pending; GNR & GPR identified on intraoperative culture from the gallbladder on Gram stain Procedures Date of Service Date of Service: 07/27/23 Progress Note: A&P Assessment and plan (1) Acute gangrenous cholecystitis: Status: Acute (2) Scar tissue: Status: Acute (3) BMI 50.0-59.9, adult: Status: Acute (4) HTN (hypertension): Status: Acute Plan Await morning labs and cultures regarding disposition Await morning potassium regarding oral replacement Await microbiology regarding drain management. Time Spent With Patient Time: Total time managing care of this patient today ____ minutes. Quality Stroke Does the patient have a stroke diagnosis?: No VTE Prior VTE?: No VTE Risk Level:: Surgical - moderate VTE Device Contraindication: N/A - Device Ordered VTE Drug Contraindication: Treatment Not Indicated
[2023-07-27 07:33] LABS: MANUAL DIFF FLAG NO
[2023-07-27 07:39] LABS: Basophils Percent Auto 0.4 % (0-2); Eosinophils Absolute Auto 0.3 X10*3/uL (0.0-0.4); Eosinophils Percent Auto 3.4 % (0-4); Hemoglobin 11.3 g/dl (14.0-18.0); Imm Gran Abs Auto 0.06 X10*3/uL (0.00-0.03); Imm Gran Pct Auto 0.7 % (0.0-0.4); Lymphocytes Absolute Auto 1.9 X10*3/uL (1.2-4.9); Lymphocytes Percent Auto 20.9 % (20-40); Mean Corpuscular HGB Conc 33.2 g/dl (31.0-36.0); Mean Corpuscular Volume 84.4 fL (80.0-98.0); Mean Platelet Volume 8.7 fL (9.4-12.4); Monocytes Absolute Auto 1.1 X10*3/uL (0.1-1.2); Monocytes Percent Auto 11.7 % (2-11); Neutrophils Absolute Auto 5.7 x10*3/uL (2.0-8.3); Neutrophils Percent Auto 62.9 % (45-73); Platelet Count 366 X10*3/uL (160-400); Red Blood Count 4.03 X10*6/uL (4.60-5.80); Red Cell Distribution Width 12.3 % (11.0-16.0); White Blood Count 9.1 X10*3/uL (4.8-10.8)
[2023-07-27] MEDS: Docusate Sodium 100 MG CAPSULE 200 MG PO (07:44)
[2023-07-27 07:51] LABS: Alanine Aminotransferase 50 U/L (0-40); Alkaline Phosphatase 99 U/L (39-117); Anion Gap 12 (12-20); Aspartate Amino Transferase 29 U/L (5-37); Blood Urea Nitrogen 9 mg/dL (9-16); Calcium 8.8 mg/dL (8.4-10.2); Carbon Dioxide 24 mmol/L (22-29); Chloride 104 mmol/L (96-108); Creatinine Clr Calc Pharmacy 174.3; Estimated Glomerular Filt Rate > 60; Glucose Random 79 mg/dL (60-115); Potassium 2.8 mmol/L (3.3-5.1); Sodium 137 mmol/L (135-145); Total Protein 6.5 g/dL (6.5-8.0)
--- NOTE | 2023-07-27 07:57 | PM.EVENT ---
Event Note Date of Service: 07/27/23 Event Note: Please note that the patient's elevated LFTs, tachycardia, leukocytosis were due to acutely gangrenous cholecystitis and not systemic sepsis. The treatment was appropriate with timely operative resection of the patient's gangrenous gallbladder. Time Spent With Patient Time: Total time managing care of this patient today ____ minutes.
[2023-07-27 08:00] VITALS: BP 133/83; PULSE 111; RESP 18; TEMP 36.2; O2SAT 98
[2023-07-27] MEDS: oxyCODONE HCl Immed Release 5 MG TABLET 10 MG PO ×2 (08:11→14:23)
[2023-07-27 09:38] LABS: Magnesium 2.2 mg/dL (1.6-2.6)
[2023-07-27] MEDS: Potassium Chloride ER 20 MEQ TAB.ER.PRT PO (11:28)
[2023-07-27 11:52] VITALS: BP 131/82; PULSE 92; RESP 18; TEMP 36.4; O2SAT 97
[2023-07-27] MEDS: cefTRIAXone sodium 2 GM in 0.9 % Sodium Chloride 50 ML IV (14:24)
[2023-07-27 14:43] LABS: Potassium 3.2 mmol/L (3.3-5.1)
--- NOTE | 2023-07-27 15:07 | MHC.CM.PN ---
Patient is discharged to home self care. He will arrange transport home from a family member.
--- NOTE | 2023-07-27 15:39 | PC.NURSE ---
K 2.8. Dr. Dietz notified. PO Kcl ordered and given. Repeat K 3.2. Dr. Dietz aware.
[2023-07-27 15:46] VITALS: BP 131/93; PULSE 94; RESP 18; TEMP 36.9; O2SAT 96
[2023-07-27 15:52] VITALS: BP 151/75; PULSE 62; RESP 18; TEMP 37.1; O2SAT 90
--- NOTE | 2023-07-27 17:13 | PC.NURSE ---
Discharge instructions explained to patient and uncle Brad with chemistry manager
== END 2023-07-27 17:00 | disposition home or self-care (01) | DRG 263 ==
LOC: HO.ED 14:22 → HO.EDOVER 14:49 → HO.S3 16:43
PROVIDERS: Nurse Practitioner Family; Admitting Provider Surgery; Emergency Provider Emergency Medicine; PCP Internal Medicine; Visit Provider Surgery
PROC: 0FT44ZZ Resection of Gallbladder, Percutaneous Endoscopic Approach (ICD-10-PCS; CPT 47562; principal; 2023-07-24 08:00)
DX: K80.00 Calculus of gallbladder with acute cholecystitis without obstruction (principal); K82.A1 Gangrene of gallbladder in cholecystitis; K76.0 Fatty (change of) liver, not elsewhere classified; K82.8 Other specified diseases of gallbladder; E87.6 Hypokalemia; I10 Essential (primary) hypertension; E66.01 Morbid (severe) obesity due to excess calories; E55.9 Vitamin D deficiency, unspecified; Z68.43 Body mass index [BMI] 50.0-59.9, adult; Z20.822 Contact with and (suspected) exposure to COVID-19; Z88.0 Allergy status to penicillin; Z79.899 Other long term (current) drug therapy
CPT/HCPCS: 0241U; 36415; 74177; 76705; 80048; 80053; 81003; 82271; 83036; 83690; 83735; 84132; 85025; 85610; 87070; 87205; 88304; 90686; 99024; 99285; C9113; J0665; J0696; J1100; J1170; J1836; J1885; J2250; J2405; J2704; J3010; J7120; Q9967

== ENCOUNTER → 2023-07-23 14:45 | Outpatient (BNV) | payer MEDICAID, SELFPAY | PROVIDERS: Admitting Provider Surgery; Emergency Provider Emergency Medicine; PCP Internal Medicine; Visit Provider Surgery | DX: K81.0 Acute cholecystitis (principal); I10 Essential (primary) hypertension; Z68.43 Body mass index [BMI] 50.0-59.9, adult; E55.9 Vitamin D deficiency, unspecified | CPT/HCPCS: 47562; 99024; 99222; 99499 ==

== ENCOUNTER 2023-08-02 12:50 | Outpatient (AMB) | payer MEDICAID, SELFPAY ==
--- NOTE | 2023-08-02 12:59 | A.OFFVIS_ITS ---
Intake Intake Visit Reasons: s/p lap marla Intake Note: This patient presents for a post-op assessment status post laparoscopic cholecystectomy. Pt c/o; reports occasional pain when bending, reports unable to eat full meals. Surgery DOS: 07/23/2023 Pricing/Signage Team Member Required: No Accompanied by: Self / Same As Patient Allergies Penicillins [PENICILLINS] Allergy (Unknown, Verified 08/02/23 13:08) Rash HPI s/p lap marla HPI Details 33-year-old male here for postop visit. He underwent laparoscopic cholecystectomy for acute cholecystitis with Dr. Dietz last 07/23/2023. He tolerated procedure well and was discharged on postop day 4. He had a drain in place and he says that this was pulled out last week by Dr. Dietz. He feels well overall. He denies any fever or chills. He has good oral intake. [facility] Medical History (Updated 08/02/23 @ 13:19 by Arvind Virk MD) Morbid obesity Surgical History History of laparoscopic cholecystectomy Social History Household Members: None Housing: Apartment Do you presently have visiting nurse or other home services: No Patient Tobacco Use Status: Never used Tobacco Second Hand Smoke Exposure: No service: No Review of Systems Const Denies chills and Denies fever(s) Card Denies chest pain, Denies dyspnea and Denies dyspnea on exertion Resp Denies cough, Denies dyspnea and Denies dyspnea on exertion GI Denies hematochezia and Denies change in bowel habits Denies hematuria and Denies difficulty urinating Musc Denies back pain and Denies limited range of motion Neuro Denies focal weakness and Denies convulsions Psych Denies depression and Denies mood swings Physical Exam Const Other: Morbidly obese General: comfortable and no acute distress Eyes Other: Nonicteric sclerae GI Other: All incisions are well healed, no drains seen Palpation (GI): Soft to palpation, not firm, nontender and no guarding Assessment & Plan Assessment & Plan (1) Acute cholecystitis: Code(s): K81.0 - Acute cholecystitis Plan: Status post laparoscopic cholecystectomy with Dr. Dietz. He is doing well. All incisions are well healed. He said his DANY drain was removed by Dr. Dietz. I advised him to avoid lifting of anything more than 20 lb for about 2 more weeks. He can otherwise follow up on a p.r.n. basis. Coding Level of Care Code Global (57954) Diagnoses Acute cholecystitis K81.0
== END 2023-08-02 13:18 | disposition home or self-care (01) ==
PROVIDERS: PCP Internal Medicine; Visit Provider Surgery
DX: K81.0 Acute cholecystitis (principal)
CPT/HCPCS: 99024

== ENCOUNTER → 2023-08-02 12:50 | Outpatient (BNVA) | payer MEDICAID, SELFPAY | PROVIDERS: PCP Internal Medicine; Visit Provider Surgery | DX: Z48.815 Encounter for surgical aftercare following surgery on the digestive system (principal); Z98.890 Other specified postprocedural states | CPT/HCPCS: 99212 ==

== ENCOUNTER 2023-10-15 10:46 | Outpatient (REF) | payer MEDICAID, SELFPAY ==
[2023-10-15 12:31] LABS: Alanine Aminotransferase 25 U/L (0-40); Alkaline Phosphatase 90 U/L (39-117); Anion Gap 14 (12-20); Aspartate Amino Transferase 24 U/L (5-37); Bilirubin Total 0.5 mg/dL (0.0-1.0); Blood Urea Nitrogen 20 mg/dL (9-16); Calcium 9.7 mg/dL (8.4-10.2); Carbon Dioxide 20 mmol/L (22-29); Chloride 108 mmol/L (96-108); Cholesterol 151 mg/dL (<200); Estimated Glomerular Filt Rate > 60; Glucose Random 83 mg/dL (60-115); HDL Cholesterol 44 mg/dL (>40); LDL Cholesterol Calculated 96 mg/dL (<100); Potassium 4.3 mmol/L (3.3-5.1); Sodium 138 mmol/L (135-145); Total Protein 8.1 g/dL (6.5-8.0); Triglycerides 56 mg/dL (<150)
[2023-10-15 13:24] LABS: Reflex LDLD? No
== END 2023-10-15 10:47 | disposition home or self-care (01) ==
LOC: HO.HHCL 10:46
PROVIDERS: Visit Provider Internal Medicine
DX: I10 Essential (primary) hypertension (principal); E78.00 Pure hypercholesterolemia, unspecified
CPT/HCPCS: 36415; 80053; 80061

== ENCOUNTER 2024-05-19 10:46 | Outpatient (REF) | payer MEDICAID, SELFPAY ==
[2024-05-19 14:02] LABS: Amylase 38 U/L (28-100); Lipase 17 U/L (8-78)
[2024-05-22 08:38] LABS: TS Negative Control Passed; TS Panel A 0; TS Panel B 0; TS Positive Control Passed; TSpotTB Negative (Negative)
== END 2024-05-19 10:47 | disposition home or self-care (01) ==
LOC: HO.HHCL 10:46
PROVIDERS: Visit Provider Internal Medicine
DX: Z00.00 Encounter for general adult medical examination without abnormal findings (principal); R11.0 Nausea
CPT/HCPCS: 36415; 82150; 83690; 86481